=== PATIENT | female | born 1980 | race Caucasian/White ===

== ENCOUNTER → 2017-12-13 | Outpatient (CLI) | payer OTHER ==
[~2017-12-13] MED LIST: ALBU8.5H2 IH; CALC500T7 PO; CETI1TAB61 PO; HYDR1TAB PO; Ibuprofen PO; OXYC1TAB87 PO; PREN-52 PO; RANI150C11 PO
--- NOTE | 2017-12-13 09:12 | Diagnostic Imaging Report ---
Clinical indication: Patient with right upper quadrant pain. Exam: Ultrasound of the right upper quadrant. Comparison: MRCP dated 01/07/2016. Findings: The liver has normal echogenicity and echotexture. Liver surface is smooth. Liver measures 17.5 cm in craniocaudal dimension. There is no gross liver mass. The gallbladder is surgically resected. There is no intrahepatic ductal dilation. Common bile duct is obscured and unable to be evaluated. The pancreas is obscured by overlying bowel gas. There is no abdominal ascites. Right kidney has normal echogenicity, cortical thickness and size and measures 11.3 cm in craniocaudal dimension. There is no hydronephrosis. Limited visualization of the IVC is unremarkable. Impression: 1: There is no acute abnormality on this right upper quadrant ultrasound as visualized. 2: Mild hepatomegaly. Otherwise, liver is unremarkable. 3: The pancreas and common bile duct is obscured by overlying bowel gas. If there is concern for pancreatic abnormality such as pancreatitis, serology tests would better evaluate. 4: The gallbladder is surgically resected.0 Dictated by: Dictated on workstation # [id number]
== END ==
LOC: RAD 06:36
PROVIDERS: ATTEND Family Medicine
DX: R16.0 Hepatomegaly, not elsewhere classified (principal); R10.11 Right upper quadrant pain; Z90.49 Acquired absence of other specified parts of digestive tract
CPT/HCPCS: 76705

== ENCOUNTER 2018-01-02 14:32 | Emergency (ER) | payer OTHER ==
[~2018-01-02] VITALS: Ht 170.2 cm; Wt 63.5 kg
--- OUTSIDE RECORDS SUMMARY | 2018-01-02 14:38 | XMS REPORT ---
Author Author BHUPINDER CASTANON [facility] Address [address] [place] [address] Care Team Providers Care Candy Cooker Helper Name Role Phone KING BHUPINDER Unavailable PROBLEMS Type Condition ICD9-CM Code [id number] Code Onset Dates Condition Status SNOMED Code Problem Elevated liver enzymes R74.8 Active 890570249 Problem Depression with anxiety F41.8 Active 626102717 Problem Chronic GERD K21.9 Active 982112688 ALLERGIES No Information ENCOUNTERS Encounter Location Date Diagnosis [facility] [id number] [place] [address] 57101- 1467 Oct, Depression with anxiety F41.8 [facility] [id number] [place] [address] 05016- 9156 Oct, Chronic GERD K21.9 [facility] [id number] [place] [address] 51470 -6616 Oct, Encounter for immunization Z23 and Foreign body in left foot, initial encounter S90.852A [facility] [address] [place] [address] 65803- 6334 Sep, Chronic GERD K21.9 ; Long-term use of high-risk medication Z79.899 and Depression with anxiety F41.8 [facility] [id number] [place] [address] 37313- 1558 Sep, Depression with anxiety F41.8 [facility] [id number] [place] [address] 41178- 1732 Aug, Depression with anxiety F41.8 [facility] [id number] [place] [address] 35128- 5161 Aug, [facility] [id number] [place] [address] 27519- 8379 Aug, Chronic GERD K21.9 and Nausea R11.0 [facility] [address] 64505- 6895 Jul, Depression with anxiety F41.8 [facility] [id number] [place] [address] 03117- 6972 Jul, [facility] [address] 22937- 7703 June, Depression with anxiety F41.8 [facility] [id number] [place] [address] 61140 -9798 June, Skin infection L08.9 [facility] [id number] [place] [address] 15045- 1143 June, [facility] [address] 65965- 8405 May, Depression with anxiety F41.8 [facility] [id number] [place] [address] 43752- 4560 Apr, Chronic GERD K21.9 ; Depression with anxiety F41.8 and Rash and nonspecific skin eruption R21 [facility] [id number] [place] [address] 41963- 9688 Apr, Depression with anxiety F41.8 [facility] [id number] [place] [address] 88113- 7766 Apr, Depression with anxiety F41.8 [facility] [id number] [place] [address] 42090 -9429 Apr, Cough R05 and Viral URI J06.9 [facility] [id number] [place] [address] 93380 -1699 Mar, Acute nasopharyngitis J00 [facility] [id number] [place] [address] 47343- 0084 Mar, Depression with anxiety F41.8 [facility] [address] [facility] [id number] [place] [address] Jan, Chronic GERD K21.9 ; Depression with anxiety F41.8 ; Elevated liver enzymes R74.8 and Rash and nonspecific skin eruption R21 [facility] [address] [facility] [id number] [place] [address] Dec, Pharyngitis due to other organism J02.8 IMMUNIZATIONS No Known Immunizations SOCIAL HISTORY Never Assessed REASON FOR VISIT Alprazolam 11/08 PLAN OF CARE VITAL SIGNS MEDICATIONS Medication Instructions Dosage Frequency Start Date End Date Duration Status Xanax 0.5 MG Orally Once a day prn 1 tablet Active RESULTS No Results PROCEDURES No Known procedures INSTRUCTIONS MEDICATIONS ADMINISTERED No Known Medications MEDICAL (GENERAL) HISTORY Type Description Date Medical History gastroesophageal reflux disease (GERD) Medical History Anxiety Surgical History hernia repair May 2016 Surgical History cholecystectomy 2012 Surgical History section x3 Surgical History Gastric emptying test EGD, ECPG 2017
--- OUTSIDE RECORDS SUMMARY | 2018-01-02 14:38 | XMS REPORT ---
Author Author BHUPINDER CASTANON [facility] Address [address] [place] [address] Care Team Providers Care Protective Officer Name Role Phone MARYSE CASTANONTA Unavailable PROBLEMS Type Condition ICD9-CM Code XIZ40-FP Code Onset Dates Condition Status SNOMED Code Problem Elevated liver enzymes R74.8 Active 338670744 Problem Depression with anxiety F41.8 Active 134483098 Problem Chronic GERD K21.9 Active 660232864 ALLERGIES Substance Reaction Event Type Date Status Morphine Sulfate Unknown Drug Allergy Aug, Active Amoxicillin Unknown Drug Allergy Aug, Active ENCOUNTERS Encounter Location Date Diagnosis [place] [id number] [place] [address] 77420- 8190 Sep, Chronic GERD K21.9 ; Long-term use of high-risk medication Z79.899 and Depression with anxiety F41.8 [place] [id number] [place] [address] 18998- 8032 Sep, Depression with anxiety F41.8 [place] [id number] [place] [address] 30173- 3204 Aug, Depression with anxiety F41.8 [place] [id number] [place] [address] 80316- 9178 Aug, [place] [id number] [place] [address] 66689- 5578 Aug, Chronic GERD K21.9 and Nausea R11.0 [place] [id number] [place] [address] 14172- 1569 Jul, Depression with anxiety F41.8 [place] [id number] [place] [address] 99014- 0587 Jul, [facility] [address] [place] [address] 83109- 0084 June, Depression with anxiety F41.8 [facility] [place] [id number] [place] [address] 61043 -7400 June, Skin infection L08.9 [place] [id number] [place] [address] 75226- 5697 June, [place] [id number] [place] [address] 98953- 4447 May, Depression with anxiety F41.8 [place] [address] 59425- 1369 Apr, Chronic GERD K21.9 ; Depression with anxiety F41.8 and Rash and nonspecific skin eruption R21 [place] [id number] [place] [address] 35520- 5238 Apr, Depression with anxiety F41.8 [place] [id number] [place] [address] 94242- 0791 Apr, Depression with anxiety F41.8 [facility] [place] [id number] [place] [address] 20831 -0461 Apr, Cough R05 and Viral URI J06.9 [facility] [place] [id number] [place] [address] 72449 -7825 Mar, Acute nasopharyngitis J00 [place] [id number] [place] [address] 62161- 7118 Mar, Depression with anxiety F41.8 [place] [id number] [place] [address] 05772- 5557 Jan, Chronic GERD K21.9 ; Depression with anxiety F41.8 ; Elevated liver enzymes R74.8 and Rash and nonspecific skin eruption R21 [facility] [place] [id number] [place] [address] 65827 -9065 Dec, Pharyngitis due to other organism J02.8 IMMUNIZATIONS No Known Immunizations SOCIAL HISTORY Never Assessed REASON FOR VISIT Increased acid, causing nausea, medication isnt working well. PHAM Gibbons PLAN OF CARE Activity Details Follow Up 2 - 3 Days if not better Reason:gerd VITAL SIGNS Height 67 in 2017-09-03 Weight 139.2 lbs 2017-09-03 Temperature 98.7 degrees Fahrenheit 2017-09-03 Heart Rate 89 bpm 2017-09-03 Respiratory Rate 20 2017-09-03 BMI 21.80 kg/m2 2017-09-03 Blood pressure systolic 130 mmHg 2017-09-03 Blood pressure diastolic 72 mmHg 2017-09-03 MEDICATIONS Medication Instructions Dosage Frequency Start Date End Date Duration Status Loratadine 10 mg Orally Once a day 1 tablet 24h Apr, 30 day(s) Active Lexapro 20 mg Orally Once a day 0.5 tablet 24h 30 days Active Protonix 40 mg Orally Once a day 1 tablet 24h 30 days Active Carafate 1 GM/10ML Orally Twice a day 10 ml on an empty stomach 12h AugAug, 10 days Active ProAir HFA Active Promethazine HCl 25 MG Orally every 12 hrs prn 1 tablet as needed Active Xanax 0.5 MG Orally Once a day prn 1 tablet 28 days Active Triamcinolone Acetonide 0.1 % Externally Twice a day 1 application to affected area 12h Apr, Active Ranitidine HCl 150 MG Orally Once a day 1 tablet at bedtime 24h 30 Active RESULTS No Results PROCEDURES No Known procedures INSTRUCTIONS MEDICATIONS ADMINISTERED No Known Medications MEDICAL (GENERAL) HISTORY Type Description Date Medical History gastroesophageal reflux disease (GERD) Medical History Anxiety Surgical History hernia repair May 2016 Surgical History cholecystectomy 2012 Surgical History section x3 Surgical History Gastric emptying test EGD, ECPG 2016
--- OUTSIDE RECORDS SUMMARY | 2018-01-02 14:38 | XMS REPORT ---
Author Author BHUPINDER CASTANON [facility] Address [address] [place] [address] Care Team Providers Care Paper Final Inspector Name Role Phone MARYSE CASTANONTA Unavailable PROBLEMS Type Condition ICD9-CM Code [id number] Code Onset Dates Condition Status SNOMED Code Problem Elevated liver enzymes R74.8 Active 096738173 Problem Depression with anxiety F41.8 Active 725178712 Problem Chronic GERD K21.9 Active 275651774 ALLERGIES No Information ENCOUNTERS Encounter Location Date Diagnosis [place] [id number] [place] [address] 90169- 2175 Sep, Chronic GERD K21.9 ; Long-term use of high-risk medication Z79.899 and Depression with anxiety F41.8 [place] [id number] [place] [address] 65640- 2084 Sep, Depression with anxiety F41.8 [place] [id number] [place] [address] 18296- 4897 Aug, Depression with anxiety F41.8 [place] [id number] [place] [address] 44764- 0697 Aug, [facility] [id number] [place] [address] 72932- 2445 Aug, Chronic GERD K21.9 and Nausea R11.0 [place] [id number] [place] [address] 62459- 2385 Jul, Depression with anxiety F41.8 [place] [id number] [place] [address] 62662- 8275 Jul, [place] [id number] [place] [address] 17479- 5975 June, Depression with anxiety F41.8 [facility] [id number] [place] [address] 15115 -8749 June, Skin infection L08.9 [place] [id number] [place] [address] 95523- 4915 June, [place] [id number] [place] [address] 22514- 4885 May, Depression with anxiety F41.8 [place] [id number] [place] [address] 88737- 0900 Apr, Chronic GERD K21.9 ; Depression with anxiety F41.8 and Rash and nonspecific skin eruption R21 [place] [id number] [place] [address] 21220- 3852 Apr, Depression with anxiety F41.8 [place] [id number] [place] [address] 57926- 0862 Apr, Depression with anxiety F41.8 [facility] [place] [id number] [place] [address] 48285 -2768 Apr, Cough R05 and Viral URI J06.9 [facility] [place] [id number] [place] [address] 31420 -9995 Mar, Acute nasopharyngitis J00 [place] [id number] [place] [address] 41744- 4685 Mar, Depression with anxiety F41.8 [place] [id number] [place] [address] 45392- 9565 Jan, Chronic GERD K21.9 ; Depression with anxiety F41.8 ; Elevated liver enzymes R74.8 and Rash and nonspecific skin eruption R21 [facility] [address] [place] [address] 22079 -6851 Dec, Pharyngitis due to other organism J02.8 IMMUNIZATIONS No Known Immunizations SOCIAL HISTORY Never Assessed REASON FOR VISIT referral PLAN OF CARE VITAL SIGNS MEDICATIONS Medication Instructions Dosage Frequency Start Date End Date Duration Status Ranitidine HCl 150 MG Orally Once a day 2 tablet at bedtime 24h 60 days Active RESULTS No Results PROCEDURES No Known procedures INSTRUCTIONS MEDICATIONS ADMINISTERED No Known Medications MEDICAL (GENERAL) HISTORY Type Description Date Medical History gastroesophageal reflux disease (GERD) Medical History Anxiety Surgical History hernia repair May 2016 Surgical History cholecystectomy 2012 Surgical History section x3 Surgical History Gastric emptying test EGD, EC 2016
--- OUTSIDE RECORDS SUMMARY | 2018-01-02 14:38 | XMS REPORT ---
Author Author PARADISE BAKER Organization [facility] Address [address] [place] [address] Care Team Providers Care Frame Maker Name Role Phone PARADISE BAKER Unavailable PROBLEMS Type Condition ICD9-CM Code [id number] Code Onset Dates Condition Status SNOMED Code Problem Elevated liver enzymes R74.8 Active 061553858 Problem Depression with anxiety F41.8 Active 227224444 Problem Chronic GERD K21.9 Active 663115371 ALLERGIES No Information ENCOUNTERS Encounter Location Date Diagnosis [place] [address] 65363- 7970 Oct, Depression with anxiety F41.8 [facility] [id number] [place] [address] 59076- 3833 Oct, Chronic GERD K21.9 [facility] [address] 85980 -6132 Oct, Encounter for immunization Z23 and Foreign body in left foot, initial encounter S90.852A [place] [id number] [place] [address] 08590- 3817 Sep, Chronic GERD K21.9 ; Long-term use of high-risk medication Z79.899 and Depression with anxiety F41.8 [facility] [id number] [place] [address] 04270- 9064 Sep, Depression with anxiety F41.8 [place] [id number] [place] [address] 42755- 7253 Aug, Depression with anxiety F41.8 [facility] [id number] [place] [address] 13506- 3642 Aug, [facility] [id number] [place] [address] 39595- 9001 Aug, Chronic GERD K21.9 and Nausea R11.0 [place] [id number] [place] [address] 61416- 5816 Jul, Depression with anxiety F41.8 [facility] [id number] [place] [address] 59974- 0828 Jul, [facility] [address] 06006- 6594 June, Depression with anxiety F41.8 [facility] [address] 67568 -3847 June, Skin infection L08.9 [place] [id number] [place] [address] 41707- 7445 June, [facility] [address] 19183- 9252 May, Depression with anxiety F41.8 [place] [id number] [place] [address] 75903- 5775 Apr, Chronic GERD K21.9 ; Depression with anxiety F41.8 and Rash and nonspecific skin eruption R21 [place] [id number] [place] [address] 64276- 7113 Apr, Depression with anxiety F41.8 [facility] [id number] [place] [address] 03511- 6730 Apr, Depression with anxiety F41.8 [facility] [id number] [place] [address] 89243 -7610 Apr, Cough R05 and Viral URI J06.9 [facility] [id number] [place] [address] 30934 -4817 Mar, Acute nasopharyngitis J00 [facility] [id number] [place] [address] 12166- 5742 Mar, Depression with anxiety F41.8 [facility] [address] [facility] [id number] [place] [address]- 7644 Jan, Chronic GERD K21.9 ; Depression with anxiety F41.8 ; Elevated liver enzymes R74.8 and Rash and nonspecific skin eruption R21 [facility] [address] [facility] [id number] [place] [address] Dec, Pharyngitis due to other organism J02.8 IMMUNIZATIONS No Known Immunizations SOCIAL HISTORY Never Assessed REASON FOR VISIT Controlled Med Refill PLAN OF CARE VITAL SIGNS MEDICATIONS Medication Instructions Dosage Frequency Start Date End Date Duration Status Xanax 0.5 MG Orally Once a day prn 1 tablet 28 days Active RESULTS No Results PROCEDURES No Known procedures INSTRUCTIONS MEDICATIONS ADMINISTERED No Known Medications MEDICAL (GENERAL) HISTORY Type Description Date Medical History gastroesophageal reflux disease (GERD) Medical History Anxiety Surgical History hernia repair May 2016 Surgical History cholecystectomy 2012 Surgical History section x3 Surgical History Gastric emptying test EGD, ECPG 2016
--- OUTSIDE RECORDS SUMMARY | 2018-01-02 14:38 | XMS REPORT ---
Author Author PARADISE BAKER [facility] Address [address] [place] [address] Care Team Providers Care Lane Marker Installer Name Role Phone PARADISE BAKER Unavailable PROBLEMS Type Condition ICD9-CM Code JHO68-IP Code Onset Dates Condition Status SNOMED Code Problem Elevated liver enzymes R74.8 Active 328826066 Problem Depression with anxiety F41.8 Active 692742298 Problem Chronic GERD K21.9 Active 663339507 ALLERGIES No Information ENCOUNTERS Encounter Location Date Diagnosis [facility] [id number] [place] [address] 89971 -2351 Oct, Encounter for immunization Z23 and Foreign body in left foot, initial encounter S90.852A [facility] [id number] [place] [address] 11502- 1860 Sep, Chronic GERD K21.9 ; Long-term use of high-risk medication Z79.899 and Depression with anxiety F41.8 [facility] [id number] [place] [address] 18979- 7923 Sep, Depression with anxiety F41.8 [facility] [id number] [place] [address] 01366- 0468 Aug, Depression with anxiety F41.8 [facility] [id number] [place] [address] 90561- 2887 Aug, [facility] [id number] [place] [address] 50989- 5124 Aug, Chronic GERD K21.9 and Nausea R11.0 [facility] [id number] [place] [address] 60785- 7059 Jul, Depression with anxiety F41.8 [facility] [id number] [place] [address] 33383- 1634 Jul, [facility] [address] 95482- 2565 June, Depression with anxiety F41.8 [facility] [id number] [place] [address] 55366 -4856 June, Skin infection L08.9 [facility] [id number] [place] [address] 16214- 8790 June, [facility] [id number] [place] [address] 71548- 4112 May, Depression with anxiety F41.8 [place] [id number] [place] [address] 65835- 3601 Apr, Chronic GERD K21.9 ; Depression with anxiety F41.8 and Rash and nonspecific skin eruption R21 [place] [id number] [place] [address] 31068- 0722 Apr, Depression with anxiety F41.8 [place] [address] [id number] [place] [address] 67121- 2566 Apr, Depression with anxiety F41.8 [facility] [id number] [place] [address] 56164 -3729 Apr, Cough R05 and Viral URI J06.9 [facility] [id number] [place] [address] 00461 -8341 Mar, Acute nasopharyngitis J00 [facility] [id number] [place] [address] 00279- 9167 Mar, Depression with anxiety F41.8 [place] [id number] [place] [address] 57845- 8314 Jan, Chronic GERD K21.9 ; Depression with anxiety F41.8 ; Elevated liver enzymes R74.8 and Rash and nonspecific skin eruption R21 [facility] [address] [facility] [id number] [place] [address] 15 Dec, 2016 Pharyngitis due to other organism J02.8 IMMUNIZATIONS [...]
--- OUTSIDE RECORDS SUMMARY | 2018-01-02 14:38 | XMS REPORT ---
Author Author PARADISE BAKER [facility] Address [address] [place] [address] Care Team Providers Care Bronzer Name Role Phone PARADISE BAKER Unavailable PROBLEMS Type Condition ICD9-CM Code [id number] Code Onset Dates Condition Status SNOMED Code Problem Elevated liver enzymes R74.8 Active 737193203 Problem Depression with anxiety F41.8 Active 503080143 Problem Chronic GERD K21.9 Active 306349122 ALLERGIES No Information ENCOUNTERS Encounter Location Date Diagnosis [facility] [id number] [place] [address] 16618- 4351 Sep, [facility] [id number] [place] [address] 80435- 7553 Sep, Depression with anxiety F41.8 [facility] [id number] [place] [address] 76956- 2159 Aug, Depression with anxiety F41.8 [facility] [id number] [place] [address] 64230- 3493 Aug, [facility] [id number] [place] [address] 82854- 4853 Aug, Chronic GERD K21.9 and Nausea R11.0 [facility] [id number] [place] [address] 18133- 3256 Jul, Depression with anxiety F41.8 [facility] [id number] [place] [address] 00646- 5618 Jul, [facility] [id number] [place] [address] 10075- 2526 June, Depression with anxiety F41.8 [facility] [id number] [place] [address] 87871 -5723 June, Skin infection L08.9 [place] [address] 89077- 7875 June, [place] [address] 54076- 4806 May, Depression with anxiety F41.8 [place] [address] 68359- 3628 Apr, Chronic GERD K21.9 ; Depression with anxiety F41.8 and Rash and nonspecific skin eruption R21 [place] [address] 39902- 3815 Apr, Depression with anxiety F41.8 [place] [address] 27226- 7143 Apr, Depression with anxiety F41.8 [facility] [place] [address] 15170 -7481 Apr, Cough R05 and Viral URI J06.9 [facility] [place] [address] 67809 -7600 Mar, Acute nasopharyngitis J00 [place] [address] 06761- 5187 Mar, Depression with anxiety F41.8 [place] [id number] [place] [address] 18805- 3515 Jan, Chronic GERD K21.9 ; Depression with anxiety F41.8 ; Elevated liver enzymes R74.8 and Rash and nonspecific skin eruption R21 [facility] [address] [address]75 -7787 Dec, Pharyngitis due to other organism J02.8 [...] x3 Surgical History Gastric emptying test EGD, [facility] 2017
--- OUTSIDE RECORDS SUMMARY | 2018-01-02 14:38 | XMS REPORT ---
Author Author BHUPINDER CASTANON [facility] Address [address] [place] [address] Care Team Providers Care Crown And Bridge Technician Name Role Phone KING BHUPINDER Unavailable PROBLEMS Type Condition ICD9-CM Code [id number] Code Onset Dates Condition Status SNOMED Code Problem Elevated liver enzymes R74.8 Active 917426126 Problem Depression with anxiety F41.8 Active 054863671 Problem Chronic GERD K21.9 Active 288935659 ALLERGIES No Information ENCOUNTERS Encounter Location Date Diagnosis [facility] [id number] [place] [address] 03177- 8590 Oct, Depression with anxiety F41.8 [facility] [id number] [place] [address] 53063- 0727 Oct, Chronic GERD K21.9 [facility] [id number] [place] [address] 26613 -8398 Oct, Encounter for immunization Z23 and Foreign body in left foot, initial encounter S90.852A [facility] [id number] [place] [address] 57412- 3348 Sep, Chronic GERD K21.9 ; Long-term use of high-risk medication Z79.899 and Depression with anxiety F41.8 [facility] [id number] [place] [address] 83786- 8461 Sep, Depression with anxiety F41.8 [facility] [id number] [place] [address] 96089- 0990 Aug, Depression with anxiety F41.8 [facility] [id number] [place] [address] 11868- 3136 Aug, [facility] [address] [place] [id number] [place] [address] 34472- 6344 Aug, Chronic GERD K21.9 and Nausea R11.0 [facility] [address] 59744- 0834 Jul, Depression with anxiety F41.8 [facility] [id number] [place] [address] 28692- 6249 Jul, [facility] [address] 26182- 5173 June, Depression with anxiety F41.8 [facility] [id number] [place] [address] 92123 -8681 June, Skin infection L08.9 [facility] [id number] [place] [address] 09890- 7401 June, [facility] [address] 32619- 1712 May, Depression with anxiety F41.8 [facility] [id number] [place] [address] 85059- 8617 Apr, Chronic GERD K21.9 ; Depression with anxiety F41.8 and Rash and nonspecific skin eruption R21 [facility] [id number] [place] [address] 42860- 1650 Apr, Depression with anxiety F41.8 [facility] [id number] [place] [address] 34867- 0723 Apr, Depression with anxiety F41.8 [facility] [id number] [place] [address] 88527 -2903 Apr, Cough R05 and Viral URI J06.9 [facility] [id number] [place] [address] 42269 -6110 Mar, Acute nasopharyngitis J00 [facility] [id number] [place] [address] 42996- 1868 Mar, Depression with anxiety F41.8 [facility] [address] [facility] [id number] [place] [address]- 4[address] Jan, Chronic GERD K21.9 ; Depression with anxiety F41.8 ; Elevated liver enzymes R74.8 and Rash and nonspecific skin eruption R21 [facility]ALK IN [facility] [address] [facility] [id number] [place] [address] Dec, Pharyngitis due to other organism J02.8 IMMUNIZATIONS No Known Immunizations SOCIAL HISTORY Never Assessed REASON FOR VISIT Refill request PLAN OF CARE VITAL SIGNS MEDICATIONS Medication Instructions Dosage Frequency Start Date End Date Duration Status ProAir HFA 108 (90 Base) MCG/ACT Inhalation every 6 hrs 2 puffs as needed 6h Active Protonix 40 mg Orally 2 times a day 1 tablet 12h Active Ranitidine HCl 150 MG Orally Once a day 1 tablet at bedtime 24h Active RESULTS No Results PROCEDURES No Known procedures INSTRUCTIONS MEDICATIONS ADMINISTERED No Known Medications MEDICAL (GENERAL) HISTORY Type Description Date Medical History gastroesophageal reflux disease (GERD) Medical History Anxiety Surgical History hernia repair May 2016 Surgical History cholecystectomy 2012 Surgical History section x3 Surgical History Gastric emptying test EGD, [facility] 2016
--- OUTSIDE RECORDS SUMMARY | 2018-01-02 14:38 | XMS REPORT ---
Author Author SAMIA HANKS [facility] Address [address] [place] [address] Care Team Providers Care Contracts Administrator Name Role Phone SAMIA HANKS Unavailable PROBLEMS Type Condition ICD9-CM Code CXA96-VT Code Onset Dates Condition Status SNOMED Code Problem Elevated liver enzymes R74.8 Active 346658057 Problem Depression with anxiety F41.8 Active 076544519 Problem Chronic GERD K21.9 Active 825736006 ALLERGIES Substance Reaction Event Type Date Status Morphine Sulfate Unknown Drug Allergy Oct, Active Amoxicillin Unknown Drug Allergy Oct, Active ENCOUNTERS Encounter Location Date Diagnosis [place] [address] 01524- 9800 Oct, Depression with anxiety F41.8 [facility] [id number] [place] [address] 96451- 2864 Oct, Chronic GERD K21.9 [facility] [id number] [place] [address] 56621 -1413 Oct, Encounter for immunization Z23 and Foreign body in left foot, initial encounter S90.852A [place] [address] [place] [address] [id number] [place] [address] 99128- 6134 Sep, Chronic GERD K21.9 ; Long-term use of high-risk medication Z79.899 and Depression with anxiety F41.8 [place] [id number] [place] [address] 09707- 3035 Sep, Depression with anxiety F41.8 [place] [id number] [place] [address] 78975- 0310 Aug, Depression with anxiety F41.8 [place] [address] [address] [id number] [place] [address] 17097- 1804 Aug, [facility] [id number] [place] [address] 99094- 3901 Aug, Chronic GERD K21.9 and Nausea R11.0 [facility] [id number] [place] [address] 55543- 4511 Jul, Depression with anxiety F41.8 [place] [id number] [place] [address] 94144- 5012 Jul, [facility] [id number] [place] [address] 61837- 2270 June, Depression with anxiety F41.8 [facility] [id number] [place] [address] 38606 -4971 June, Skin infection L08.9 [place] [id number] [place] [address] 23683- 0795 June, [facility] [id number] [place] [address] 37201- 8398 May, Depression with anxiety F41.8 [place] [id number] [place] [address] 24703- 3997 Apr, Chronic GERD K21.9 ; Depression with anxiety F41.8 and Rash and nonspecific skin eruption R21 [place] [id number] [place] [address] 67609- 5608 Apr, Depression with anxiety F41.8 [place] [id number] [place] [address] 45664- 8981 Apr, Depression with anxiety F41.8 [facility] [id number] [place] [address] 07974 -3893 Apr, Cough R05 and Viral URI J06.9 [facility] [id number] [place] [address] 88145 -0221 Mar, Acute nasopharyngitis J00 [place] [address] [facility] [id number] [place] [address]- [address] Mar, Depression with anxiety F41.8 [facility] [address] [facility] [id number] [address] Jan, Chronic GERD K21.9 ; Depression with anxiety F41.8 ; Elevated liver enzymes R74.8 and Rash and nonspecific skin eruption R21 [facility] [address] [facility] [id number], [place] [address] Dec, Pharyngitis due to other organism J02.8 IMMUNIZATIONS Vaccine Route Administration Date Status TDAP (BOOSTRIX) IM Intramuscular Nov 02, 2017 Administered SOCIAL HISTORY Never Assessed REASON FOR VISIT glass in foot last night JStrasserRN PLAN OF CARE Activity Details Follow Up prn Reason:if pain continues VITAL SIGNS Height 67 in 2017-11-02 Weight 141.2 lbs 2017-11-02 Temperature 99.5 degrees Fahrenheit 2017-11-02 Heart Rate 92 bpm 2017-11-02 Respiratory Rate 20 2017-11-02 BMI 22.11 kg/m2 2017-11-02 Blood pressure systolic 112 mmHg 2017-11-02 Blood pressure diastolic 70 mmHg 2017-11-02 MEDICATIONS Medication Instructions Dosage Frequency Start Date End Date Duration Status Metoclopramide HCl 10 MG Orally 4 times a day 1 tablet 6h Active Ranitidine HCl 150 MG Orally Once a day 1 tablet at bedtime 24h Active Protonix 40 mg Orally Once a day 1 tablet 24h Active Xanax 0.5 MG Orally Once a day prn 1 tablet Active Triamcinolone Acetonide 0.1 % Externally Twice a day 1 application to affected area 12h 21 Apr, 2017 Active ProAir HFA Active Loratadine 10 mg Orally Once a day 1 tablet 24h 16 Apr, 2018 30 day(s) Active Promethazine HCl 25 MG Orally every 12 hrs prn 1 tablet as needed Active Lexapro 20 mg Orally Once a day 1 tablet 24h 30 days Active RESULTS No Results PROCEDURES Procedure Date Ordered Result Body Site TDAP (BOOSTRIX) Nov 02, 2017 SINGLE IMMUNIZATION ADMIN Nov 02, 2017 INSTRUCTIONS MEDICATIONS ADMINISTERED No Known Medications MEDICAL (GENERAL) HISTORY Type Description Date Medical History gastroesophageal reflux disease (GERD) Medical History Anxiety Surgical History hernia repair May 2016 Surgical History cholecystectomy 2012 Surgical History section x3 Surgical History Gastric emptying test EGD, [facility] 2017
--- OUTSIDE RECORDS SUMMARY | 2018-01-02 14:38 | XMS REPORT ---
Author Author BHUPINDER CASTANON [facility] Address [address] [place] [address] Care Team Providers Care Clock Assembler Name Role Phone MARYSE CASTANONTA Unavailable PROBLEMS Type Condition ICD9-CM Code [id number] Code Onset Dates Condition Status SNOMED Code Problem Elevated liver enzymes R74.8 Active 767915741 Problem Depression with anxiety F41.8 Active 511772662 Problem Chronic GERD K21.9 Active 792736951 ALLERGIES Substance Reaction Event Type Date Status Morphine Sulfate Unknown Drug Allergy Sep, Active Amoxicillin Unknown Drug Allergy Sep, Active ENCOUNTERS Encounter Location Date Diagnosis [facility] [id number] [place] [address] 88975- 0443 Oct, Depression with anxiety F41.8 [facility] [id number] [place] [address] 76224- 7817 Oct, Chronic GERD K21.9 [facility] [id number] [place] [address] 12083 -0752 Oct, Encounter for immunization Z23 and Foreign body in left foot, initial encounter S90.852A [facility] [id number] [place] [address] 31030- 1133 Sep, Chronic GERD K21.9 ; Long-term use of high-risk medication Z79.899 and Depression with anxiety F41.8 [facility] [id number] [place] [address] 84506- 6486 Sep, Depression with anxiety F41.8 [facility] [id number] [place] [address] 84313- 8910 Aug, Depression with anxiety F41.8 [facility] [id number] [place] [address] 60511- 7061 Aug, [facility] [id number] [place] [address] 66482- 6896 Aug, Chronic GERD K21.9 and Nausea R11.0 [facility] [id number] [place] [address] 18431- 5099 Jul, Depression with anxiety F41.8 [place] [id number] [place] [address] 34285- 5014 Jul, [place] [id number] [place] [address] 01275- 2380 June, Depression with anxiety F41.8 [facility] [id number] [place] [address] 58907 -9687 June, Skin infection L08.9 [place] [id number] [place] [address] 87803- 2582 June, [facility] [id number] [place] [address] 39336- 0475 May, Depression with anxiety F41.8 [place] [id number] [place] [address] 88126- 4457 Apr, Chronic GERD K21.9 ; Depression with anxiety F41.8 and Rash and nonspecific skin eruption R21 [place] [id number] [place] [address] 41510- 3229 Apr, Depression with anxiety F41.8 [facility] [id number] [place] [address] 47542- 0907 Apr, Depression with anxiety F41.8 [facility] [id number] [place] [address] 22172 -4088 Apr, Cough R05 and Viral URI J06.9 [facility] [id number] [place] [address] 17494 -8957 Mar, Acute nasopharyngitis J00 [place] [address] [facility] [id number] [place] [address]- 0096 Mar, Depression with anxiety F41.8 [facility] [address] [facility] [id number], [place] [address] Jan, Chronic GERD K21.9 ; Depression with anxiety F41.8 ; Elevated liver enzymes R74.8 and Rash and nonspecific skin eruption R21 [facility] [address] [facility] [id number] [address] Dec, Pharyngitis due to other organism J02.8 IMMUNIZATIONS No Known Immunizations SOCIAL HISTORY Never Assessed REASON FOR VISIT New provider visit. JACQUIE Hope PLAN OF CARE Activity Details Follow Up 3 months or as indicated by lab Reason:med review VITAL SIGNS Height 67 in 2017-10-28 Weight 142.5 lbs 2017-10-28 Temperature 97.9 degrees Fahrenheit 2017-10-28 Heart Rate 88 bpm 2017-10-28 Respiratory Rate 18 2017-10-28 BMI 22.32 kg/m2 2017-10-28 Blood pressure systolic 112 mmHg 2017-10-28 Blood pressure diastolic 66 mmHg 2017-10-28 MEDICATIONS Medication Instructions Dosage Frequency Start Date End Date Duration Status Promethazine HCl 25 MG Orally every 12 hrs prn 1 tablet as needed Active ProAir HFA Active Lexapro 20 mg Orally Once a day 1 tablet 24h 30 days Active Loratadine 10 mg Orally Once a day 1 tablet 24h 16 Apr, 2018 30 day(s) Active Ranitidine HCl 150 MG Orally Once a day 1 tablet at bedtime 24h Active Triamcinolone Acetonide 0.1 % Externally Twice a day 1 application to affected area 12h Apr, Active Xanax 0.5 MG Orally Once a day prn 1 tablet Active Protonix 40 mg Orally Once a day 1 tablet 24h Active Metoclopramide HCl 10 MG Orally 4 times a day 1 tablet 6h Active RESULTS No Results PROCEDURES Procedure Date Ordered Result Body Site DRUG TEST PRSMV CHEM ANLYZR Oct 28, 2017 INSTRUCTIONS MEDICATIONS ADMINISTERED No Known Medications MEDICAL (GENERAL) HISTORY Type Description Date Medical History gastroesophageal reflux disease (GERD) Medical History Anxiety Surgical History hernia repair May 2016 Surgical History cholecystectomy 2012 Surgical History section x3 Surgical History Gastric emptying test EGD, [facility] 2016
--- OUTSIDE RECORDS SUMMARY | 2018-01-02 14:39 | XMS REPORT ---
Author Author PARADISE BAKER [facility] Address [address] [place] [address] Care Team Providers Care Waist Cutter Name Role Phone PARADISE BAKER Unavailable PROBLEMS Type Condition ICD9-CM Code [id number] Code Onset Dates Condition Status SNOMED Code Problem Elevated liver enzymes R74.8 Active 578416394 Problem Depression with anxiety F41.8 Active 213748871 Problem Chronic GERD K21.9 Active 070953564 ALLERGIES No Information ENCOUNTERS Encounter Location Date Diagnosis [facility] [address] [id number] [place] [address] 79329- 8452 Sep, [facility] [address] [id number] [place] [address] 86228- 3613 Sep, Depression with anxiety F41.8 [facility] [address] [id number] [place] [address] 92193- 4255 Aug, Depression with anxiety F41.8 [facility] [address] [place] [address] [id number] [place] [address] 16325- 2359 Aug, [facility] [address] [place] [id number] [place] [address] 93860- 6214 Aug, Chronic GERD K21.9 and Nausea R11.0 [facility] [address] [place] [id number] [place] [address] 35421- 5540 Jul, Depression with anxiety F41.8 [facility] [address] [place] [address] [id number] [place] [address] 45844- 3840 Jul, [facility] [address] [place] [id number] [place] [address] 49008- 3053 June, Depression with anxiety F41.8 [facility] [address] [place] [id number] [place] [address] 02936 -6630 June, Skin infection L08.9 [place] [address] 09200- 0161 June, [place] [address] 85220- 8669 May, Depression with anxiety F41.8 [place] [address] 89901- 9730 Apr, Chronic GERD K21.9 ; Depression with anxiety F41.8 and Rash and nonspecific skin eruption R21 [place] [address] 91787- 6233 Apr, Depression with anxiety F41.8 [place] [address] 38986- 9361 Apr, Depression with anxiety F41.8 [facility] WALK IN [place] [address] 72719 -7651 Apr, Cough R05 and Viral URI J06.9 [facility] WALK IN [address] 59[address] -0335 Mar, Acute nasopharyngitis J00 [address] [address]01- 5658 Mar, Depression with anxiety F41.8 [place] [address] [place] [id number] [place] [address] 07782- 6202 Jan, Chronic GERD K21.9 ; Depression with anxiety F41.8 ; Elevated liver enzymes R74.8 and Rash and nonspecific skin eruption R21 [facility] WALK IN [address] [address] Dec, Pharyngitis due to other organism J02.8 IMMUNIZATIONS No Known Immunizations SOCIAL HISTORY Never Assessed REASON FOR VISIT Eye Exam PLAN OF CARE VITAL SIGNS MEDICATIONS Unknown Medications RESULTS No Results PROCEDURES No Known procedures INSTRUCTIONS MEDICATIONS ADMINISTERED No Known Medications MEDICAL (GENERAL) HISTORY Type Description Date Medical History gastroesophageal reflux disease (GERD) Medical History Anxiety Surgical History hernia repair May 2016 Surgical History cholecystectomy 2012 Surgical History section x3 Surgical History Gastric emptying test EGD, [facility] 2017
--- OUTSIDE RECORDS SUMMARY | 2018-01-02 14:39 | XMS REPORT ---
Author Author ROBERT GRIFFITH [facility] Address [address] [place] [address] Care Team Providers Care Pad Extraction Tender Name Role Phone ROBERT GRIFFITH Unavailable PROBLEMS Type Condition ICD9-CM Code [id number] Code Onset Dates Condition Status SNOMED Code Problem Elevated liver enzymes R74.8 Active 327937754 Problem Depression with anxiety F41.8 Active 367864962 Problem Chronic GERD K21.9 Active 816146203 ALLERGIES Substance Reaction Event Type Date Status Morphine Sulfate Unknown Drug Allergy June, Active Amoxicillin Unknown Drug Allergy June, Active ENCOUNTERS Encounter Location Date Diagnosis [place] [address] [id number] [place] [address] 75800- 3688 Sep, [facility] [id number] [place] [address] 81015- 0320 Aug, Depression with anxiety F41.8 [facility] [id number] [place] [address] 92095- 8215 Aug, [facility] [id number] [place] [address] 34946- 4248 Aug, Chronic GERD K21.9 and Nausea R11.0 [facility] [id number] [place] [address] 00341- 6225 Jul, Depression with anxiety F41.8 [facility] [address] 80439- 6755 Jul, [facility] [id number] [place] [address] 52819- 3962 June, Depression with anxiety F41.8 [facility] [id number] [place] [address] 11652 -1900 June, Skin infection L08.9 [facility] [id number] [place] [address] 52690- 1910 June, [place] [address] 64815- 9822 May, Depression with anxiety F41.8 [place] [address] 99694- 4001 Apr, Chronic GERD K21.9 ; Depression with anxiety F41.8 and Rash and nonspecific skin eruption R21 [place] [address] 79040- 3123 Apr, Depression with anxiety F41.8 [place] [address] 50531- 2775 Apr, Depression with anxiety F41.8 [facility] [place] [address] 65464 -3275 Apr, Cough R05 and Viral URI J06.9 [facility] IN [place] [id number] [place] [address] 53194 -4377 Mar, Acute nasopharyngitis J00 [place] [id number] [place] [address] 02929- 7203 Mar, Depression with anxiety F41.8 [place] [address] 33306- 2418 Jan, Chronic GERD K21.9 ; Depression with anxiety F41.8 ; Elevated liver enzymes R74.8 and Rash and nonspecific skin eruption R21 [facility] [place] [address] 70044 -1660 Dec, Pharyngitis due to other organism J02.8 IMMUNIZATIONS No Known Immunizations SOCIAL HISTORY Never Assessed REASON FOR VISIT hurt finger Pt c/o spot on knuckle of R pointer finger that may possibly be infected, states last week she brushed knuckle against a chair and she keeps bumping it JACQUIE Jenkins PLAN OF CARE Activity Details Follow Up prn Reason: VITAL SIGNS Height 67 in 2017-07-08 Weight 141.6 lbs 2017-07-08 Temperature 98.4 degrees Fahrenheit 2017-07-08 Heart Rate 76 bpm 2017-07-08 Respiratory Rate 18 2017-07-08 BMI 22.18 kg/m2 2017-07-08 Blood pressure systolic 126 mmHg 2017-07-08 Blood pressure diastolic 76 mmHg 2017-07-08 MEDICATIONS Medication Instructions Dosage Frequency Start Date End Date Duration Status Promethazine HCl 25 MG Orally every 12 hrs prn 1 tablet as needed Not-Taking Protonix 40 mg Orally Once a day 1 tablet 24h 30 days Active Ranitidine HCl 150 MG Orally Once a day 1 tablet at bedtime 24h 30 day(s) Active Loratadine 10 mg Orally Once a day 1 tablet 24h 16 Apr, 2018 30 day(s) Active ProAir HFA Active Triamcinolone Acetonide 0.1 % Externally Twice a day 1 application to affected area 12h Apr, Active Lexapro 20 mg Orally Once a day 0.5 tablet 24h 30 days Active Bactrim DS 800-160 MG Orally Twice a day 1 tablet 12h June, 10 days Active Xanax 0.5 MG Orally Once a [...]
--- OUTSIDE RECORDS SUMMARY | 2018-01-02 14:39 | XMS REPORT ---
Author Author PARADISE BAKER [facility] Address [address] [place] [address] Care Team Providers Care Cook Chill Technician Name Role Phone PARADISE BAKER Unavailable PROBLEMS Type Condition ICD9-CM Code [id number] Code Onset Dates Condition Status SNOMED Code Problem Elevated liver enzymes R74.8 Active 836302735 Problem Depression with anxiety F41.8 Active 171883377 Problem Chronic GERD K21.9 Active 144125934 ALLERGIES No Information ENCOUNTERS Encounter Location Date Diagnosis [facility] [id number] [place] [address] 02545- 6247 Aug, Depression with anxiety F41.8 [facility] [id number] [place] [address] 84082- 3321 Aug, [facility] [id number] [place] [address] 12413- 1494 Aug, Chronic GERD K21.9 and Nausea R11.0 [facility] [address] [place] [id number] [place] [address] 98191- 6488 Jul, Depression with anxiety F41.8 [facility] [id number] [place] [address] 51830- 0621 Jul, [facility] [id number] [place] [address] 59917- 3814 June, Depression with anxiety F41.8 [facility] [id number] [place] [address] 49685 -9818 June, Skin infection L08.9 [facility] [id number] [place] [address] 54191- 1369 June, [facility] [id number] [place] [address] 77043- 6806 May, Depression with anxiety F41.8 [place] [id number] [place] [address] 09348- 5994 Apr, Chronic GERD K21.9 ; Depression with anxiety F41.8 and Rash and nonspecific skin eruption R21 [place] [address] 85914- 6661 Apr, Depression with anxiety F41.8 [place] [address] 26750- 1429 Apr, Depression with anxiety F41.8 [facility] IN [place] [address] 51159 -3888 Apr, Cough R05 and Viral URI J06.9 [facility] IN [place] [address] 02459 -5573 Mar, Acute nasopharyngitis J00 [place] [address] [place] [address] [id number] [place] [address] 95121- 3797 Mar, Depression with anxiety F41.8 [place] [address] [id number] [place] [address] 45057- 4168 Jan, Chronic GERD K21.9 ; Depression with anxiety F41.8 ; Elevated liver enzymes R74.8 and Rash and nonspecific skin eruption R21 [facility] [place] [address] [place] [address] [id number] [place] [address] 19242 -0236 Dec, Pharyngitis due to other organism J02.8 [...]
--- OUTSIDE RECORDS SUMMARY | 2018-01-02 14:39 | XMS REPORT ---
Author Author PARADISE BAKER [facility] Address [address] [place] [address] Care Team Providers Care Golf Range Attendant Name Role Phone PARADISE BAKER Unavailable PROBLEMS Type Condition ICD9-CM Code PIH21-II Code Onset Dates Condition Status SNOMED Code Problem Elevated liver enzymes R74.8 Active 351247596 Problem Depression with anxiety F41.8 Active 351269802 Problem Chronic GERD K21.9 Active 910566069 ALLERGIES No Information ENCOUNTERS Encounter Location Date Diagnosis [place] [address] 97627- 4975 Jul, Depression with anxiety F41.8 [facility] [id number] [place] [address] 46303- 5714 Jul, [facility] [address] 39446- 4228 June, Depression with anxiety F41.8 [facility] [id number] [place] [address] 37784 -2195 June, Skin infection L08.9 [facility] [address] 49245- 9984 June, [facility] [id number] [place] [address] 50354- 7684 May, Depression with anxiety F41.8 [facility] [address] 64439- 0215 Apr, Chronic GERD K21.9 ; Depression with anxiety F41.8 and Rash and nonspecific skin eruption R21 [facility] [id number] [place] [address] 98867- 0739 Apr, Depression with anxiety F41.8 [facility] [address] [address] 2891 Apr, Depression with anxiety F41.8 [facility] [address] [place] [address] 53228 -3165 Apr, Cough R05 and Viral URI J06.9 [facility] [address] 13316 -2926 Mar, Acute nasopharyngitis J00 [facility] [address] [place] [id number] [place] [address] 94626- 8071 Mar, Depression with anxiety F41.8 [facility] [id number] [place] [address] 55284- 9484 Jan, Chronic GERD K21.9 ; Depression with anxiety F41.8 ; Elevated liver enzymes R74.8 and Rash and nonspecific skin eruption R21 [facility] [address] [place] [address] 44120 -2270 Dec, Pharyngitis due to other organism J02.8 [...]
--- OUTSIDE RECORDS SUMMARY | 2018-01-02 14:39 | XMS REPORT ---
Author Author PARADISE BAKER [facility] Address [address] [place] [address] Care Team Providers Care Green Belt Name Role Phone PARADISE BAKER Unavailable PROBLEMS Type Condition ICD9-CM Code RXR97-PK Code Onset Dates Condition Status SNOMED Code Problem Elevated liver enzymes R74.8 Active 873039236 Problem Depression with anxiety F41.8 Active 805344364 Problem Chronic GERD K21.9 Active 821143713 ALLERGIES No Information ENCOUNTERS Encounter Location Date Diagnosis [place] [address] [id number] [place] [address] 21200- 9060 Sep, [facility] [address] 42446- 1730 Aug, Depression with anxiety F41.8 [facility] [id number] [place] [address] 22073- 9660 Aug, [place] [id number] [place] [address] 80611- 7342 Aug, Chronic GERD K21.9 and Nausea R11.0 [facility] [address] [place] [address] [id number] [place] [address] 03608- 6634 Jul, Depression with anxiety F41.8 [facility] [id number] [place] [address] 90711- 0346 Jul, [facility] [address] [id number] [place] [address] 63222- 3861 June, Depression with anxiety F41.8 [facility] [id number] [place] [address] 61266 -2145 June, Skin infection L08.9 [facility] [address] [place] [address] [id number] [place] [address] 97030- 2048 June, [place] [address] 44415- 8695 May, Depression with anxiety F41.8 [place] [id number] [place] [address] 02789- 3187 Apr, Chronic GERD K21.9 ; Depression with anxiety F41.8 and Rash and nonspecific skin eruption R21 [place] [address] 90653- 7861 Apr, Depression with anxiety F41.8 [place] [address] 86484- 1833 Apr, Depression with anxiety F41.8 [facility] [address] 10101 -1733 Apr, Cough R05 and Viral URI J06.9 [facility] [place] [id number] [place] [address] 12170 -5761 Mar, Acute nasopharyngitis [address] 52646- 5645 Mar, Depression with anxiety F41.8 [place] [address] 97195- 5028 Jan, Chronic GERD K21.9 ; Depression with anxiety F41.8 ; Elevated liver enzymes R74.8 and Rash and nonspecific skin eruption R21 [facility] [place] [id number] [place] [address] 64265 -6477 Dec, Pharyngitis due to other organism J02.8 [...]
--- OUTSIDE RECORDS SUMMARY | 2018-01-02 14:39 | XMS REPORT ---
Author Author PARADISE BAKER [facility] Address [address] [place] [address] Care Team Providers Care Php Architect Name Role Phone PARADISE BAKER Unavailable PROBLEMS Type Condition ICD9-CM Code LIW09-IR Code Onset Dates Condition Status SNOMED Code Problem Elevated liver enzymes R74.8 Active 667516755 Problem Depression with anxiety F41.8 Active 627876626 Problem Chronic GERD K21.9 Active 791422274 ALLERGIES No Information ENCOUNTERS Encounter Location Date Diagnosis [facility] [id number] [place] [address] 20187- 3276 Aug, Depression with anxiety F41.8 [facility] [id number] [place] [address] 37472- 2844 Aug, [facility] [id number] [place] [address] 12908- 8690 Aug, Chronic GERD K21.9 and Nausea R11.0 [facility] [id number] [place] [address] 02128- 8152 Jul, Depression with anxiety F41.8 [facility] [id number] [place] [address] 70895- 4109 Jul, [facility] [id number] [place] [address] 85988- 0666 June, Depression with anxiety F41.8 [facility] [id number] [place] [address] 70539 -8667 June, Skin infection L08.9 [facility] [id number] [place] [address] 51116- 5633 June, [facility] [id number] [place] [address] 15140- 4445 May, Depression with anxiety F41.8 [place] [id number] [place] [address] 43444- 2100 Apr, Chronic GERD K21.9 ; Depression with anxiety F41.8 and Rash and nonspecific skin eruption R21 [place] [address] 40344- 2867 Apr, Depression with anxiety F41.8 [place] [address] 65203- 8644 Apr, Depression with anxiety F41.8 [facility] IN [place] [address] 14752 -3914 Apr, Cough R05 and Viral URI J06.9 [facility] [place] [address] 28724 -6892 Mar, Acute nasopharyngitis J00 [place] [id number] [place] [address] 19790- 4056 Mar, Depression with anxiety F41.8 [place] [address] [address] [id number] [place] [address] 57753- 9192 Jan, Chronic GERD K21.9 ; Depression with anxiety F41.8 ; Elevated liver enzymes R74.8 and Rash and nonspecific skin eruption R21 [facility] [place] [address] [id number] [place] [address] 54819 -5214 Dec, Pharyngitis due to other organism J02.8 [...]
--- OUTSIDE RECORDS SUMMARY | 2018-01-02 14:39 | XMS REPORT ---
Author Author PARADISE BAKER [facility] Address [address] [place] [address] Care Team Providers Care Electronics Engineering Manager Name Role Phone PARADISE BAKER Unavailable PROBLEMS Type Condition ICD9-CM Code FPD87-LP Code Onset Dates Condition Status SNOMED Code Problem Elevated liver enzymes R74.8 Active 957534060 Problem Depression with anxiety F41.8 Active 729673696 Problem Chronic GERD K21.9 Active 347152967 ALLERGIES Substance Reaction Event Type Date Status Morphine Sulfate Unknown Drug Allergy Apr, Active Amoxicillin Unknown Drug Allergy Apr, Active ENCOUNTERS Encounter Location Date Diagnosis [facility] [address] [place] [id number] [place] [address] 99514- 3602 Aug, Depression with anxiety F41.8 [facility] [id number] [place] [address] 63485- 5607 Aug, [place] [address] [place] [address] [id number] [place] [address] 58754- 6311 Aug, Chronic GERD K21.9 and Nausea R11.0 [facility] [address] [place] [address] [id number] [place] [address] 19857- 8393 Jul, Depression with anxiety F41.8 [facility] [id number] [place] [address] 11280- 3160 Jul, [facility] [address] [place] [address] [id number] [place] [address] 72689- 1619 June, Depression with anxiety F41.8 [facility] [id number] [place] [address] 17172 -0599 June, Skin infection L08.9 [facility] [address] [id number] [place] [address] 25700- 1534 June, [facility] [address] [place] [address] [id number] [place] [address] 53578- 1076 May, Depression with anxiety F41.8 [facility] [address] [place] [id number] [place] [address] 85456- 0016 Apr, Chronic GERD K21.9 ; Depression with anxiety F41.8 and Rash and nonspecific skin eruption R21 [place] [address] [address] [id number] [place] [address] 38112- 9308 Apr, Depression with anxiety F41.8 [place] [address] 15807- 7135 Apr, Depression with anxiety F41.8 [facility] [place] [address] 91549 -9155 Apr, Cough R05 and Viral URI J06.9 [facility] [place] [address] [address] [id number] [place] [address] 20690 -0034 Mar, Acute nasopharyngitis J00 [place] [address] 55632- 4839 Mar, Depression with anxiety F41.8 [place] [address] [place] [address] [id number] [place] [address] 91305- 2652 Jan, Chronic GERD K21.9 ; Depression with anxiety F41.8 ; Elevated liver enzymes R74.8 and Rash and nonspecific skin eruption R21 [facility] [place] [address] [address] [id number] [place] [address] 40584 -0791 Dec, Pharyngitis due to other organism J02.8 IMMUNIZATIONS No Known Immunizations SOCIAL HISTORY Never Assessed REASON FOR VISIT Anxiety follow up-AHarrymanRN, Rash on legs still present, would like to try a scream or something PLAN OF CARE Activity Details Follow Up 6 Months, prn Reason:xanax VITAL SIGNS Height 67 in 2017-05-19 Weight 141.6 lbs 2017-05-19 Temperature 98.0 degrees Fahrenheit 2017-05-19 Heart Rate 90 bpm 2017-05-19 Respiratory Rate 18 2017-05-19 BMI 22.18 kg/m2 2017-05-19 Blood pressure systolic 116 mmHg 2017-05-19 Blood pressure diastolic 70 mmHg 2017-05-19 MEDICATIONS Medication Instructions Dosage Frequency Start Date End Date Duration Status ProAir HFA Active Promethazine HCl 25 MG Orally every 12 hrs prn 1 tablet as needed Active Ranitidine HCl 150 MG Orally Once a day 1 tablet at bedtime 24h 30 day(s) Active Protonix 40 mg Orally Once a day 1 tablet 24h 30 days Active Loratadine 10 mg Orally Once a day 1 tablet 24h 16 Apr, 2018 30 day(s) Active Lexapro 20 mg Orally Once a day 0.5 tablet 24h 30 days Active Xanax 0.5 MG Orally Once a day prn 1 tablet 28 days Active Triamcinolone Acetonide 0.1 % Externally Twice a day 1 application to affected area 12h Apr, Active RESULTS No Results PROCEDURES No Known procedures INSTRUCTIONS MEDICATIONS ADMINISTERED No Known Medications MEDICAL (GENERAL) HISTORY Type Description Date Medical History gastroesophageal reflux disease (GERD) Medical History Anxiety Surgical History hernia repair May 2016 Surgical History cholecystectomy 2012 Surgical History section x3 Surgical History Gastric emptying test EGD, ECPG 2016
--- OUTSIDE RECORDS SUMMARY | 2018-01-02 14:39 | XMS REPORT ---
Author Author PARADISE BAKER [facility] Address [address] [place] [address] Care Team Providers Care Sweet Pickle Maker Name Role Phone PARADISE BAKER Unavailable PROBLEMS Type Condition ICD9-CM Code JJU53-AL Code Onset Dates Condition Status SNOMED Code Problem Elevated liver enzymes R74.8 Active 350457548 Problem Depression with anxiety F41.8 Active 506017370 Problem Chronic GERD K21.9 Active 143099298 ALLERGIES No Information ENCOUNTERS Encounter Location Date Diagnosis [place] [id number] [place] [address] 84943- 5610 Sep, [facility] [id number] [place] [address] 93592- 0611 Aug, Depression with anxiety F41.8 [facility] [id number] [place] [address] 03233- 4112 Aug, [place] [address] [place] [id number] [place] [address] 84309- 5697 Aug, Chronic GERD K21.9 and Nausea R11.0 [facility] [address] [place] [id number] [place] [address] 16025- 8558 Jul, Depression with anxiety F41.8 [facility] [id number] [place] [address] 73174- 5305 Jul, [facility] [address] [place] [id number] [place] [address] 20008- 7229 June, Depression with anxiety F41.[address] [facility] [id number] [place] [address] 51880 -7227 10 Jun, 2017 Skin infection L08.9 [facility] [id number] [place] [address] 36829- 5585 June, [facility] [address] 84480- 6009 May, Depression with anxiety F41.8 [place] [address] [id number] [place] [address] 11479- 2240 Apr, Chronic GERD K21.9 ; Depression with anxiety F41.8 and Rash and nonspecific skin eruption R21 [place] [address] [place] [id number] [place] [address] 88933- 3558 Apr, Depression with anxiety F41.8 [place] [address] 20278- 2149 Apr, Depression with anxiety F41.8 [facility] [place] [address] 51301 -7890 Apr, Cough R05 and Viral URI J06.[address] [facility] [place] [address] [id number] [place] [address] 82195 -2586 Mar, Acute nasopharyngitis J00 [place] [address] 19463- 4157 Mar, Depression with anxiety F41.8 [place] [address] 73202- 2300 Jan, Chronic GERD K21.9 ; Depression with anxiety F41.8 ; Elevated liver enzymes R74.8 and Rash and nonspecific skin eruption R21 [facility] [place] [address] [id number] [place] [address] 67411 -3315 Dec, Pharyngitis due to other organism J02.8 I[facility]UN[facility] No Known Immunizations SOCIAL HISTORY Never Assessed REASON FOR VISIT bp check-AHarrymanRN PLAN OF CARE VITAL SIGNS Height 67 in 2017-07-01 Blood pressure systolic 118 mmHg 2017-07-01 Blood pressure diastolic 68 mmHg 2017-07-01 MEDICATIONS Unknown Medications RESULTS No Results PROCEDURES No Known procedures INSTRUCTIONS MEDICATIONS ADMINISTERED No Known Medications MEDICAL (GENERAL) HISTORY Type Description Date Medical History gastroesophageal reflux disease (GERD) Medical History Anxiety Surgical History hernia repair May 2016 Surgical History cholecystectomy 2012 Surgical History section x3 Surgical History Gastric emptying test EGD, ECPG 2017
--- OUTSIDE RECORDS SUMMARY | 2018-01-02 14:39 | XMS REPORT ---
Author Author ROBERT GRIFFITH [facility] IN [facility] Address [address] [place] [address] Care Team Providers Care Stamping Machine Operator Name Role Phone ROBERT GRIFFITH Unavailable PROBLEMS Type Condition ICD9-CM Code [id number] Code Onset Dates Condition Status SNOMED Code Problem Elevated liver enzymes R74.8 Active 479006988 Problem Depression with anxiety F41.8 Active 697332898 Problem Chronic GERD K21.9 Active 902839452 ALLERGIES Substance Reaction Event Type Date Status Morphine Sulfate Unknown Drug Allergy Mar, Active Amoxicillin Unknown Drug Allergy Mar, Active ENCOUNTERS Encounter Location Date Diagnosis [place] [address] [address] Jul, Depression with anxiety F41.8 [place] [address] [address] Jul, [place] [address] [place] [id number] [place] [address] June, Depression with anxiety F41.8 [facility] [address] [place] [id number] [place] [address] June, Skin infection L08.9 [facility] [address] [place] [id number] [place] [address] June, [place] [address] [address] May, Depression with anxiety F41.8 [place] [address] [place] [id number] [place] [address]85[address] Apr, Chronic GERD K21.9 ; Depression with anxiety F41.8 and Rash and nonspecific skin eruption R21 [place] [id number] [address] Apr, Depression with anxiety F41.8 [place] [address] [place] [id number] [place] [address]- 1149 Apr, Depression with anxiety F41.8 [facility] [address] [place] [id number] [place] [address] Apr, Cough R05 and Viral URI J06.9 [facility] [place] [address] [id number] [place] [address] Mar, Acute nasopharyngitis J00 [place] [address] [place] [id number] [place] [address] 25[address]- 9354 Mar, Depression with anxiety F41.8 [place] [address] [id number] [place] [address] 35[address] Jan, Chronic GERD K21.9 ; Depression with anxiety F41.8 ; Elevated liver enzymes R74.8 and Rash and nonspecific skin eruption R21 [facility] [place] [address] [id number] [place] [address] Dec, Pharyngitis due to other organism J02.8 IMMUNIZATIONS No Known Immunizations SOCIAL HISTORY Never Assessed REASON FOR VISIT flu symptoms, cough, congestion x3 days----DBennettRN PLAN OF CARE Activity Details Follow Up prn Reason: VITAL SIGNS Height 67 in 2017-03-26 Weight 143 lbs 2017-03-26 Temperature 98.7 degrees Fahrenheit 2017-03-26 Heart Rate 90 bpm 2017-03-26 Respiratory Rate 20 2017-03-26 BMI 22.39 kg/m2 2017-03-26 Blood pressure systolic 124 mmHg 2017-03-26 Blood pressure diastolic 70 mmHg 2017-03-26 MEDICATIONS Medication Instructions Dosage Frequency Start Date End Date Duration Status Protonix 40 mg Orally Once a day 1 tablet 24h 30 days Active Xanax 0.5 MG Orally Once a day prn 1 tablet 28 days Active Promethazine HCl 25 MG Orally every 12 hrs prn 1 tablet as needed Jan Active Lexapro 20 mg Orally Once a day 0.5 tablet 24h 30 days Active Ranitidine HCl 150 MG Orally Once a day 1 tablet at bedtime 24h Jan, 30 day(s) Active Loratadine 10 mg Orally Once a day 1 tablet 24h Jan, Jul, 30 day(s) Active RESULTS Name Result Date Reference Range INFLUENZA A & B (IN HOUSE) 2017-03-26 INFLUENZA A negative INFLUENZA B negative Control + Lot # [id number] Exp date 06/16/19 PROCEDURES Procedure Date Ordered Result Body Site INFLUENZA ASSAY W/OPTIC Mar 26, 2017 INSTRUCTIONS MEDICATIONS ADMINISTERED No Known Medications MEDICAL (GENERAL) HISTORY Type Description Date Medical History gastroesophageal reflux disease (GERD) Medical History Anxiety Surgical History hernia repair May 2016 Surgical History cholecystectomy 2012 Surgical History section x3 Surgical History Gastric emptying test EGD, [facility] 2017
--- OUTSIDE RECORDS SUMMARY | 2018-01-02 14:39 | XMS REPORT ---
Author Author RAFFY HARDY [facility] IN [facility] Address [address] [place] [address] Care Team Providers Care Slitting Machine Operator Helper Name Role Phone HARDYVAMSIRAFFY Unavailable PROBLEMS Type Condition ICD9-CM Code [id number] Code Onset Dates Condition Status SNOMED Code Problem Elevated liver enzymes R74.8 Active 238032119 Problem Depression with anxiety F41.8 Active 943743333 Problem Chronic GERD K21.9 Active 076932727 ALLERGIES Substance Reaction Event Type Date Status Morphine Sulfate Unknown Drug Allergy Apr, Active Amoxicillin Unknown Drug Allergy Apr, Active ENCOUNTERS Encounter Location Date Diagnosis [place] [address] [place] [id number] [place] [address] Jul, Depression with anxiety F41.8 [facility] [address] [place] [id number] [place] [address]244- 0569 Jul, [facility] [address] [place] [id number] [place] [address] 14284- 2084 June, Depression with anxiety F41.8 [facility] [address] [place] [place] [id number] [place] [address] June, Skin infection L08.9 [facility] [address] [place] [id number] [place] [address] 60[address] June, [facility] [address] [place] [id number] [place] [address] 61578- 0319 May, Depression with anxiety F41.8 [facility] [address] [place] [id number] [place] [address] 56[address]- 0733 Apr, Chronic GERD K21.9 ; Depression with anxiety F41.8 and Rash and nonspecific skin eruption R21 [facility] [id number], [place] [address] Apr, Depression with anxiety F41.8 [place] [address] [place] [place] [id number] [place] [address]- 30[address] Apr, Depression with anxiety F41.8 [facility] IN [facility] [address] [place] [id number] [place] [address] Apr, Cough R05 and Viral URI J06.9 [facility] IN [place] [address] [place] [id number] [place] [address] Mar, Acute nasopharyngitis J00 [place] [address] [address] Mar, Depression with anxiety F41.8 [place] [address] [place] [id number] [place] [address]- [address] Jan, Chronic GERD K21.9 ; Depression with anxiety F41.8 ; Elevated liver enzymes R74.8 and Rash and nonspecific skin eruption R21 [facility] IN [place] [id number] [place] [address]41 [address] Dec, Pharyngitis due to other organism J02.8 IMMUNIZATIONS No Known Immunizations SOCIAL HISTORY Never Assessed REASON FOR VISIT flu symptoms Pt c/o chest tightness now with her cough she has had for about a week, also has a lot of sinus pain and pressure JACQUIE Jenkins PLAN OF CARE Activity Details Follow Up prn Reason: VITAL SIGNS Height 67 in 2017-04-01 Weight 138.6 lbs 2017-04-01 Temperature 99.1 degrees Fahrenheit 2017-04-01 Heart Rate 90 bpm 2017-04-01 Respiratory Rate 20 2017-04-01 BMI 21.71 kg/m2 2017-04-01 Blood pressure systolic 126 mmHg 2017-04-01 Blood pressure diastolic 72 mmHg 2017-04-01 MEDICATIONS Medication Instructions Dosage Frequency Start Date End Date Duration Status Loratadine 10 mg Orally Once a day 1 tablet 24h Jan, Jul, 30 day(s) Active Xanax 0.5 MG Orally Once a day prn 1 tablet 28 days Active Protonix 40 mg Orally Once a day 1 tablet 24h 30 days Active Lexapro 20 mg Orally Once a day 0.5 tablet 24h 30 days Active Promethazine HCl 25 MG Orally every 12 hrs prn 1 tablet as needed Jan Active Ranitidine HCl 150 MG Orally Once a day 1 tablet at bedtime 24h Jan, 30 day(s) Active ProAir HFA Active RESULTS Name Result Date Reference Range INFLUENZA A & B (IN HOUSE) 2017-04-01 INFLUENZA A negative INFLUENZA B negative Control + Lot # [id number] Exp date 2019-07-13 PROCEDURES Procedure Date Ordered Result Body Site INFLUENZA ASSAY W/OPTIC Apr 01, 2017 INSTRUCTIONS MEDICATIONS ADMINISTERED No Known Medications MEDICAL (GENERAL) HISTORY Type Description Date Medical History gastroesophageal reflux disease (GERD) Medical History Anxiety Surgical History hernia repair May 2016 Surgical History cholecystectomy 2012 Surgical History section x3 Surgical History Gastric emptying test EGD, [facility] 2016
--- OUTSIDE RECORDS SUMMARY | 2018-01-02 14:40 | XMS REPORT ---
Author Author PARADISE BAKER Organization [facility] Address [address] [place] [address] Care Team Providers Care Plant Utility Person Name Role Phone PARADISE BAKER Unavailable PROBLEMS Type Condition ICD9-CM Code [id number] Code Onset Dates Condition Status SNOMED Code Problem Elevated liver enzymes R74.8 Active 502356082 Problem Depression with anxiety F41.8 Active 688330091 Problem Chronic GERD K21.9 Active 108935465 ALLERGIES Substance Reaction Event Type Date Status Morphine Sulfate Unknown Drug Allergy Jan, Active Amoxicillin Unknown Drug Allergy Jan, Active ENCOUNTERS Encounter Location Date Diagnosis [facility] [address] [place] [id number] [place] [address]59[address] Jul, [facility] [address] [place] [id number] [place] [address]77- 5[address] June, Depression with anxiety F41.8 [facility] [address] [place] [id number] [place] [address]66 [address] June, Skin infection L08.9 [facility] [address] [place] [id number] [place] [address] 00888- [address] June, [facility] [address] [place] [id number] [place] [address] 67188- 9400 May, Depression with anxiety F41.8 [facility] [address] [place] [id number] [place] [address] 12331- [address]994 Apr, Chronic GERD K21.9 ; Depression with anxiety F41.8 and Rash and nonspecific skin eruption R21 [facility] [address] [place] [id number] [place] [address] 93272- 1390 Apr, Depression with anxiety F41.8 [facility] [address] [address] Apr, Depression with anxiety F41.8 [facility] [place] [address] [place] [id number] [place] [address]1984 [address] Apr, Cough R05 and Viral URI J06.9 [facility] [address] [place] [id number] [place] [address]1881 -[phone] Mar, Acute nasopharyngitis J00 [place] [address] [place] [id number] [place] [address] 52[address]- [address] Mar, Depression with anxiety F41.[address] [address] Jan, Chronic GERD K21.9 ; Depression with anxiety F41.8 ; Elevated liver enzymes R74.8 and Rash and nonspecific skin eruption R21 [facility] [place] [id number] [place] [address]277 [address] Dec, Pharyngitis due to other organism J02.8 IMMUNIZATIONS No Known Immunizations SOCIAL HISTORY Never Assessed REASON FOR VISIT Establish Care----Stephon, hiatal hernia surgery in May by Dr. Quintero, symptoms have returned., rash on bilateral legs, does not itch PLAN OF CARE Activity Details Follow Up 3 months or as indicated by lab Reason: VITAL SIGNS Height 67 in 2017-02-03 Weight 136 lbs 2017-02-03 Temperature 97.5 degrees Fahrenheit 2017-02-03 Heart Rate 70 bpm 2017-02-03 Respiratory Rate 20 2017-02-03 BMI 21.30 kg/m2 2017-02-03 Blood pressure systolic 122 mmHg 2017-02-03 Blood pressure diastolic 80 mmHg 2017-02-03 MEDICATIONS Medication Instructions Dosage Frequency Start Date End Date Duration Status Lexapro 20 mg Orally Once a day 0.5 tablet 24h 30 days Active Promethazine HCl 25 MG Orally every 12 hrs prn 1 tablet as needed Jan Active Loratadine 10 mg Orally Once a day 1 tablet 24h Jan, Jul, 30 day(s) Active Ranitidine HCl 150 MG Orally Once a day 1 tablet at bedtime 24h Jan, 30 day(s) Active Protonix 40 mg Orally Once a day 1 tablet 24h 30 days Active Xanax 0.5 MG Orally Once a day prn 1 tablet 28 days Active RESULTS No Results PROCEDURES Procedure Date Ordered Result Body Site COMPREHEN METABOLIC PANEL Feb 03, 2017 ASSAY OF MAGNESIUM Feb 03, 2017 VENIPUNCT, ROUTINE* Feb 03, 2017 ANTISTREPTOLYSIN O, TITER Feb 03, 2017 COMPLETE CBC W/AUTO DIFF WBC Feb 03, 2017 RBC SED RATE, AUTOMATED Feb 03, 2017 C-REACTIVE PROTEIN Feb 03, 2017 INSTRUCTIONS MEDICATIONS ADMINISTERED No Known Medications MEDICAL (GENERAL) HISTORY Type Description Date Medical History gastroesophageal reflux disease (GERD) Medical History Anxiety Surgical History hernia repair May 2016 Surgical History cholecystectomy 2012 Surgical History section x3 Surgical History Gastric emptying test EGD, [facility] 2016
--- OUTSIDE RECORDS SUMMARY | 2018-01-02 14:40 | XMS REPORT | Continuity of Care Document ---
Author Author [facility] Organization [facility] Address Unknown Phone Unavailable Allergies Active Description Code Type Severity Reaction Onset Reported/Identified Relationship to Patient Clinical Status Yes MORPHINE MORPHINE MODERATE Yes PENICILLINS PENICILLINS MODERATE Yes TRAMADOL TRAMADOL MODERATE Yes MORPHINE MODERATE DERMATOLOGICAL - HIV Yes PENICILLINS MODERATE DERMATOLOGICAL - MICKI Yes TRAMADOL MODERATE ITCHING Yes Penicillins [id number] Drug Allergy Unknown RASH 05/12/2012 Yes morphine [id number] Drug Allergy Mild RASH 05/18/2012 Medications Medication Packaging Start Date Stop Date Route Dosage Sig ONDANSETRON VIAL INJ 4 MG/2CC (ZOFRAN 2CC VIAL) MG 01/25/2016 01/25/2016 PRN ONCE FENTANYL AMP INJ 100 MCG/2CC MCG 01/25/2016 ONCE&1403 FENTANYL AMP INJ 100 MCG/2CC MCG 01/25/2016 ONCE&1637 LACTATED RINGERS 1000CC IV BAG INJ 0 ml 05/12/2016 05/13/2016 CONTINUOUSEVERY 0 Hour LACTATED RINGERS 1000CC IV BAG INJ 0 ml 06/10/2016 06/11/2016 CONTINUOUSEVERY 0 Hour ONDANSETRON VIAL INJ 4 MG/2CC (ZOFRAN 2CC VIAL) MG 06/10/2016 06/10/2016 PRN ONCE FENTANYL INJ 100 MCG/2CC VIAL MCG 06/10/2016 06/10/2016 ONCE&0816 MIDAZOLAM 2CC VIAL INJ 1 MG/CC (VERSED 2CC VIAL) MG 06/10/2016 06/10/2016 ONCE&0850 ONDANSETRON TAB 4 MG (ZOFRAN) MG 06/10/2016 PRN ONCE DEXAMETHASONE TAB 4 MG (DECADRON) MG 06/10/2016 06/10/2016 ONCE&1000 LEVOFLOXACIN PREMIX IV BAG INJ 500 MG/100CC (LEVAQUIN IV PREMIX 100CC BAG) MG 06/10/2016 06/10/2016 ONCE&1045 D5 LAC RINGERS 1000CC IV BAG INJ 0 ml 06/10/2016 06/17/2016 CONTINUOUSEVERY 0 Hour OXYCODONE 5MG/APAP 325MG TAB 0 (PERCOCET-5) TAB 06/10/2016 06/17/2016 PRN Q4H ONDANSETRON VIAL INJ 4 MG/2CC (ZOFRAN 2CC VIAL) MG 06/10/2016 06/17/2016 PRN Q4H ENALAPRIL VIAL INJ 1.25 MG/CC (VASOTEC VIAL) MG 06/10/2016 06/13/2016 PRN Q6H PANTOPRAZOLE TAB 40 MG (PROTONIX) Dose(s) 06/10/2016 06/17/2016 BID&0800,2000 ALPRAZOLAM TAB 0.25 MG (XANAX) Dose(s) 06/10/2016 06/19/2016 QHS&2100 ESCITALOPRAM TAB 10 MG (LEXAPRO) Dose(s) 06/10/2016 06/14/2016 QHS&2100 NORMAL SALINE 1000CC IV BAG INJ 0.9 % (NS 1000CC IV BAG) ml 06/10/2016 06/25/2016 CONTINUOUSEVERY 0 Hour DEMEROL CAD APPLICATION SUPPORT SPECIALIST SYRINGE INJ 300 MG/30CC (MEPERIDINE CAD APPLICATION SUPPORT SPECIALIST SYRINGE 10MG/CC ) MG 06/10/2016 06/13/2016 CONTINUOUSEVERY 0 Hour SCOPOLAMINE PATCH PAT 1.5 MG (TRANSDERM SCOP) MG 06/11/2016 06/17/2016 Q72H&0800 Problems Date Dx Coded Attending Type Code Diagnosis Diagnosed By 12/14/2013 ELIDA KIRK DO Ot 354.0 12/14/2013 ELIDA KIRK DO Ot 648.81 12/14/2013 ELIDA KIRK DO Ot 648.91 12/14/2013 ELIDA KIRK DO Ot 654.21 12/14/2013 ELIDA KIRK DO Ot V06.1 12/14/2013 ELIDA KIRK DO Ot V27.0 10/23/2015 A 530.81 ESOPHAGEAL REFLUX 10/23/2015 A K21.0 GASTRO- ESOPHAGEAL REFLUX DISEASE WITH ESOPHAGITIS 01/01/2016 A 577.0 ACUTE PANCREATITIS 01/01/2016 A K85.90 ACUTE PANCREATITIS WITHOUT NECROSIS OR INFECTION, UNSP 01/07/2016 KELLIE FRANCO CAREER AND TECHNOLOGY EDUCATION TEACHER Ot R10.9 UNSPECIFIED ABDOMINAL PAIN 01/07/2016 KELLIE FRANCO CAREER AND TECHNOLOGY EDUCATION TEACHER Ot R94.5 ABNORMAL RESULTS OF LIVER FUNCTION STUDI 01/08/2016 KELLIE FRANCO CAREER AND TECHNOLOGY EDUCATION TEACHER Ot R10.9 UNSPECIFIED ABDOMINAL PAIN 01/08/2016 KELLIE FRANCO CAREER AND TECHNOLOGY EDUCATION TEACHER Ot R94.5 ABNORMAL RESULTS OF LIVER FUNCTION STUDI 01/25/2016 Brittney Nicholson A 789.07 ABDOMINAL PAIN, GENERALIZED 01/25/2016 Brittney Nicholson W 790.5 OTHER NONSPECIFIC ABNORMAL SERUM ENZYME LEVELS 01/25/2016 Brittney Nicholson A R10.84 GENERALIZED ABDOMINAL PAIN 01/25/2016 Brittney Nicholson W R74.8 ABNORMAL LEVELS OF OTHER SERUM ENZYMES 01/29/2016 KELLIE FRANCO CAREER AND TECHNOLOGY EDUCATION TEACHER Ot R10.9 UNSPECIFIED ABDOMINAL PAIN 01/29/2016 KELLIE FRANCO CAREER AND TECHNOLOGY EDUCATION TEACHER Ot R94.5 ABNORMAL RESULTS OF LIVER FUNCTION STUDI 05/12/2016 Anamaria Quintero 530.81 05/12/2016 Anamaria Quintero 535.50 UNSPECIFIED GASTRITIS AND GASTRODUODENITIS, WITHOUT MENTION OF HEMORRHAGE 05/12/2016 Anamaria Quintero 552.3 DIAPHRAGMATIC HERNIA WITH OBSTRUCTION 05/12/2016 Anamaria Quintero 787.02 NAUSEA ALONE 05/12/2016 Anamaria Quintero 787.3 FLATULENCE, ERUCTATION, AND GAS PAIN 05/12/2016 Anamaria Quintero K21.9 GASTRO-ESOPHAGEAL REFLUX DISEASE WITHOUT ESOPHAGITIS 05/12/2016 Anamaria Quintero K29.60 OTHER GASTRITIS WITHOUT BLEEDING 05/12/2016 Anamaria Quintero K44.9 DIAPHRAGMATIC HERNIA WITHOUT OBSTRUCTION OR GANGRENE 05/12/2016 Anamaria Quintero R11.0 NAUSEA 05/12/2016 Anamaria Quintero R14.0 ABDOMINAL DISTENSION (GASEOUS) 06/11/2016 Anamaria Quintero 493.90 ASTHMA, UNSPECIFIED 06/11/2016 Anamaria Quintero 530.81 ESOPHAGEAL REFLUX 06/11/2016 Anamaria Quintero 552.3 DIAPHRAGMATIC HERNIA WITH OBSTRUCTION 06/11/2016 Anamaria Quintero J45.909 UNSPECIFIED ASTHMA, UNCOMPLICATED 06/11/2016 Anamaria Quintero K21.9 GASTRO-ESOPHAGEAL REFLUX DISEASE WITHOUT ESOPHAGITIS 06/11/2016 Anamaria Quintero K44.9 DIAPHRAGMATIC HERNIA WITHOUT OBSTRUCTION OR GANGRENE 12/06/2017 KELLIE FRANCO APRN Ot R10.9 UNSPECIFIED ABDOMINAL PAIN 12/06/2017 KLELIE FRANCO APRN Ot R94.5 ABNORMAL RESULTS OF LIVER FUNCTION STUDI 12/14/2017 CARITO DHILLON MD, Ot R10.11 RIGHT UPPER QUADRANT PAIN 12/14/2017 CARITO DHILLON MD, Ot R16.0 HEPATOMEGALY, NOT ELSEWHERE CLASSIFIED 12/14/2017 CARITO DHILLON MD, Ot Z90.49 ACQUIRED ABSENCE OF OTHER SPECIFIED PART Procedures There is no data. Results Test Result Range Lipase - 01/21/16 09:15 Lipase 27 U/L 7-59 Urinalysis - 01/25/16 13:54 Icotest N/A Negative Urine Volume Urine Volume Sufficient (10mL) Urine-Appearance Clear Clear Urine-Bacteria 1+ Urine-Bilirubin Negative Negative Urine-Blood Trace-intact Negative Urine-Color Yellow Colorless-Lt. Yellow Urine-Epithelial Cells 0-5/HPF Urine-Glucose Negative Negative Urine-Ketones Negative Negative Urine-Leukocytes Negative Negative Urine-Nitrite Negative Negative Urine-Other Urine Saved if Culture Needed (48hrs from time of collection) Urine-pH 6.0 5-8.5 Urine-Protein Negative Negative Urine-RBC Few/HPF Urine-Specific [place] 1.020 1.000-1.030 Urine-WBC Few/HPF Urobilinogen 0.2 E.U./dL 0.2-1.0 Gamma Glutamyl Transferase - 01/25/16 16:27 GGT 56 U/L 5-40 Vitamin D, 25 OH - 02/20/16 08:01 Vitamin D, 25 OH 26.80 ng/mL 25.00-100.00 Complement C1 Esterase Inhibitor, Functional - 02/20/16 08:01 C1 EST.INHIB.FUNCT. 100 %MEAN NORMAL BMP - 05/07/16 13:46 Anion Gap 15 6-14 BUN 11 mg/dL 5-25 Calcium 9.6 mg/dL 8.3-10.4 Chloride 105 mmol/L 95-114 CO2 24 mEq/L 22-33 Creat 0.71 mg/dL 0.50-1.50 eGFR 94 mL/min/1.73m2 >59 Glucose 82 mg/dL 70-110 Osmo 288 280-295 Potassium 4.3 mmol/L 3.5-5.3 Sodium 140 mmol/L 134-148 MRSA Screen - 05/07/16 13:46 FINAL CULTURE RESULTS MRSA Negative Nasal Culture MEDIA PLATED Setup at 14:10 on 05/07/2016 Test-Serum - 05/12/16 09:47 Preg Test-S Negative Negative Surgical Pathology - 05/12/16 10:54 Surg Path Sent to [facility] Comprehensive Metabolic Panel - 06/03/16 13:11 Albumin 4.4 g/dL 3.6-5.1 ALP 65 U/L 35-130 ALT 13 U/L 6-45 Anion Gap 14 6-14 AST 15 U/L 2-40 BUN 12 mg/dL 5-25 Calcium 9.2 mg/dL 8.3-10.4 Chloride 103 mmol/L 95-114 CO2 27 mEq/L 22-33 Creat 0.70 mg/dL 0.50-1.50 eGFR 95 mL/min/1.73m2 >59 Globulin 2.7 g/dL 2.3-3.5 Glucose 101 mg/dL 70-110 Osmo 289 280-295 Potassium 3.9 mmol/L 3.5-5.3 Sodium 140 mmol/L 134-148 TBil 0.2 mg/dL 0.2-1.2 TP 7.1 g/dL 6.0-8.3 MRSA Screen - 06/03/16 13:11 FINAL CULTURE RESULTS MRSA Negative Nasal Culture MEDIA PLATED Setup at 13:22 on 06/03/2016 XM (2) LRPC - 06/10/16 07:44 CROSSMATCH COMPATIBLE X 2 Hct 40.6 % 36.0-46.0 Hgb 13.2 g/dL 13.0-15.0 Urine Culture - 06/10/16 09:19 PRELIM CULTURE RESULTS No Growth 24 hours FINAL CULTURE RESULTS No Growth 48 hours MEDIA PLATED Setup at 11:16 on 06/10/2016 CULTURE SOURCE cath BMP - 06/10/16 18:00 Anion Gap 14 6-14 BUN 10 mg/dL 5-25 Calcium 8.6 mg/dL 8.3-10.4 Chloride 105 mmol/L 95-114 CO2 21 mEq/L 22-33 Creat 0.72 mg/dL 0.50-1.50 eGFR 92 mL/min/1.73m2 >59 Glucose 235 mg/dL 70-110 Osmo 287 280-295 Potassium 4.0 mmol/L 3.5-5.3 Sodium 136 mmol/L 134-148 BMP - 06/11/16 07:52 Anion Gap 11 6-14 BUN 7 mg/dL 5-25 Calcium 8.4 mg/dL 8.3-10.4 Chloride 105 mmol/L 95-114 CO2 25 mEq/L 22-33 Creat 0.65 mg/dL 0.50-1.50 eGFR 104 mL/min/1.73m2 >59 Glucose 146 mg/dL 70-110 Osmo 284 280-295 Potassium 3.7 mmol/L 3.5-5.3 Sodium 137 mmol/L 134-148 CRP - 02/03/17 12:06 C-REACTIVE PROTEIN 3.2 mg/L <8.0 PDM - PAIN MGMT (PROFILE 3 WITH CONFIRMATION) - 10/28/17 10:33 Prescribed Drug 1 Xanax(TM) NRG Creatinine 16.0 mg/dL > or=20.0 pH 6.53 4.5 - 9.0 Oxidant NEGATIVE mcg/mL <200 Amphetamines NEGATIVE ng/mL <500 medMATCH Amphetamines CONSISTENT NRG Benzodiazepines POSITIVE ng/mL <100 Marijuana Metabolite NEGATIVE ng/mL <20 medMATCH Marijuana Metab CONSISTENT NRG Cocaine Metabolite NEGATIVE ng/mL <150 medMATCH Cocaine Metab CONSISTENT NRG Opiates NEGATIVE ng/mL <100 medMATCH Opiates CONSISTENT NRG Oxycodone NEGATIVE ng/mL <100 medMATCH Oxycodone CONSISTENT NRG COMMENT NRG Alphahydroxyalprazolam 35 ng/mL <25 medMATCH aOH alprazolam CONSISTENT NRG Alphahydroxymidazolam NEGATIVE ng/mL <50 medMATCH aOH midazolam CONSISTENT NRG Alphahydroxytriazolam NEGATIVE ng/mL <50 medMATCH aOH triazolam CONSISTENT NRG Aminoclonazepam NEGATIVE ng/mL <25 medMATCH Aminoclonazepam CONSISTENT NRG Hydroxyethylflurazepam NEGATIVE ng/mL <50 medMATCH OH,Et flurazepam CONSISTENT NRG Lorazepam NEGATIVE ng/mL <50 medMATCH Lorazepam CONSISTENT NRG Nordiazepam NEGATIVE ng/mL <50 medMATCH Nordiazepam CONSISTENT NRG Oxazepam NEGATIVE ng/mL <50 medMATCH Oxazepam CONSISTENT NRG Temazepam NEGATIVE ng/mL <50 medMATCH Temazepam CONSISTENT NRG Specific [place] 1.005 > or=1.003 CBC - 11/29/17 12:31 WHITE BLOOD CELL COUNT 7.7 Thousand/uL 3.8-10.8 RED BLOOD CELL COUNT 4.66 Million/uL 3.80-5.10 HEMOGLOBIN 13.3 g/dL 11.7-15.5 HEMATOCRIT 40.2 % 35.0-45.0 MCV 86.3 fL 80.0-100.0 MCH 28.5 pg 27.0-33.0 MCHC 33.1 g/dL 32.0-36.0 RDW 13.1 % 11.0-15.0 PLATELET COUNT 304 Thousand/uL 140-400 MPV 9.6 fL 7.5-12.5 ABSOLUTE NEUTROPHILS 4628 cells/uL 3869-3241 ABSOLUTE LYMPHOCYTES 2333 cells/uL 850-3900 ABSOLUTE MONOCYTES 585 cells/uL 200-950 ABSOLUTE EOSINOPHILS 123 cells/uL 15-500 ABSOLUTE BASOPHILS 31 cells/uL 0-200 NEUTROPHILS 60.1 % NRG LYMPHOCYTES 30.3 % NRG MONOCYTES 7.6 % NRG EOSINOPHILS 1.6 % NRG BASOPHILS 0.4 % NRG LIPASE - 11/29/17 12:31 LIPASE 22 U/L 7-60 Encounters ACCT No. Visit Date/Time Discharge Status Pt. Type Provider Facility Loc./Unit Complaint [id number] 12/13/2017 06:36:00 12/13/2017 23:59:59 CLS Outpatient CARITO DHILLON MD [facility] RAD RUQ ABD PAIN [id number] 01/07/2016 07:35:00 01/07/2016 23:59:59 CLS Outpatient KELLIE FRANCO APRN [facility] RAD ABD PAIN,ELEVATED LFT 'S [id number] 12/12/2013 08:00:00 12/14/2013 12:15:00 DIS Inpatient ELIDA KIRK DO [facility] LDRP [id number] 12/06/2013 07:25:00 12/06/2013 23:59:59 CLS Outpatient [id number] 01/02/2018 14:33:00 ACT Emergency DANE SAWANT, LAVELL Winkler [facility] ER SIDE PAIN,FEVER [id number] 06/10/2016 00:00:00 06/11/2016 15:00:00 DIS Outpatient Anamaria Quintero [facility] MED-SURG [id number] 06/03/2016 12:55:00 06/03/2016 23:59:00 DIS Outpatient Anamaria Quintero [id number] 05/13/2016 10:03:00 05/13/2016 23:59:00 DIS Outpatient Anamaria Quintero [id number] 05/12/2016 00:00:00 05/12/2016 11:40:00 DIS Outpatient Anamaria Quintero [id number] 05/07/2016 13:23:00 05/07/2016 23:59:00 DIS Outpatient Anamaria Quintero [id number] 02/20/2016 07:57:00 02/20/2016 23:59:00 DIS Outpatient Jos Acevedo [id number] 01/25/2016 13:41:00 01/25/2016 16:53:00 DIS Outpatient Brittney Nicholson [id number] 01/21/2016 09:03:00 01/21/2016 23:59:00 DIS Outpatient Anamaria Quintero [id number] 06/03/2016 13:12:51 Document Registration [id number] 01/31/2016 12:24:47 Document Registration [id number] 01/25/2016 13:56:41 Document Registration [id number] 01/01/2016 20:22:00 Document Registration [id number] 01/21/2016 09:03:00 Document Registration [id number] 09/03/2017 11:40:00 09/03/2017 23:59:59 CLS Outpatient PARADISE BAKER APRN [facility] [id number] 11/29/2017 11:20:00 Document Registration [id number] 10/28/2017 10:00:00 Document Registration [id number] 02/03/2017 10:00:00 Document Registration
[2018-01-02 14:57] LABS: BILIRUBIN,URINE NEGATIVE (NEGATIVE); CLARITY,URINE CLEAR; COLOR,URINE YELLOW; GLUCOSE, URINE (UA) NEGATIVE (NEGATIVE); KETONES,URINE NEGATIVE (NEGATIVE); LEUKOCYTE ESTERASE ,URINE 1+ (NEGATIVE); NITRITE,URINE NEGATIVE (NEGATIVE); PH,URINE 6 (5-9); PROTEIN,URINE 1+ (NEGATIVE); UROBILINOGEN,URINE NORMAL (NORMAL)
[2018-01-02 15:06] LABS: BACTERIA,URINE FEW /HPF; WBC,URINE RARE /HPF
[2018-01-02 15:54] LABS: BASOPHILS # (AUTO) 0.1 10^3/uL (0.0-0.1); BASOPHILS % (AUTO) 1 % (0-10); EOSINOPHILS # (AUTO) 0.1 10^3/uL (0.0-0.3); EOSINOPHILS % (AUTO) 1 % (0-10); HEMATOCRIT 37 % (35-52); HEMOGLOBIN 12.1 G/DL (11.5-16.0); LYMPHOCYTES # (AUTO) 2.6 X 10^3 (1.0-4.0); LYMPHOCYTES % (AUTO) 27 % (12-44); MEAN CORPUSCULAR HEMOGLOBIN 28 PG (25-34); MEAN CORPUSCULAR HGB CONC 33 G/DL (32-36); MEAN CORPUSCULAR VOLUME 85 FL (80-99); MEAN PLATELET VOLUME 9.8 FL (7.4-10.4); MONOCYTES # (AUTO) 0.9 X 10^3 (0.0-1.0); MONOCYTES % (AUTO) 9 % (0-12); NEUTROPHILS # (AUTO) 5.8 X 10^3 (1.8-7.8); NEUTROPHILS % (AUTO) 62 % (42-75); PLATELET COUNT 261 10^3/uL (130-400); RED BLOOD COUNT 4.34 10^6/uL (4.35-5.85); RED CELL DISTRIBUTION WIDTH 13.6 % (10.0-14.5); WHITE BLOOD COUNT 9.5 10^3/uL (4.3-11.0)
[2018-01-02 16:05] LABS: ALANINE AMINOTRANSFERASE 9 U/L (0-55); ALBUMIN 4.3 GM/DL (3.2-4.5); ALKALINE PHOSPHATASE 43 U/L (40-136); BILIRUBIN,TOTAL 0.1 MG/DL (0.1-1.0); BUN/CREATININE RATIO 18; CALCIUM 9.2 MG/DL (8.5-10.1); CARBON DIOXIDE 20 MMOL/L (21-32); CHLORIDE 109 MMOL/L (98-107); GFR ESTIMATED > 60; GLUCOSE 91 MG/DL (70-105); LIPASE 27 U/L (8-78); POTASSIUM 3.9 MMOL/L (3.6-5.0); SODIUM 141 MMOL/L (135-145); TOTAL PROTEIN 6.7 GM/DL (6.4-8.2)
[2018-01-02] MEDS ORDERED: RECEIVED CONTRAST (Hold Metformin) IV SCH (16:30)
[2018-01-02] MEDS ORDERED: IOHEXOL 350 MG/ML 100 ML (OMNIPAQUE 350) VIAL IV ONE (16:30)
[2018-01-02] MEDS ORDERED: NS 250 ML (IVPB) BAG IV ONE (16:30)
--- NOTE | 2018-01-02 17:06 | Diagnostic Imaging Report ---
PROCEDURE: CT abdomen and pelvis with contrast. TECHNIQUE: Multiple contiguous axial images were obtained through the abdomen and pelvis after administration of intravenous contrast. INDICATION: Right upper quadrant pain. FINDINGS: The heart size is normal. The lung bases are clear. The liver is normal in size and without focal lesions. The gallbladder is surgically absent. There is no biliary ductal dilatation. Spleen is normal. Pancreas and adrenal glands are unremarkable. The kidneys are normal in appearance. Aorta is nonaneurysmal. Bowel gas pattern is nonspecific. The appendix is normal. There is some questionable mucosal thickening in the gastric antrum. There is no free air. There is no ascites. There is no focal inflammatory changes. There is a 5.6 cm cyst in the left adnexa and some soft tissue fullness in the right adnexa. The uterus is normal in appearance. Bladder is normal. The osseous structures are unremarkable. IMPRESSION: 1. Questionable mucosal thickening in the gastric antrum. Possibility of gastritis or ulcer disease cannot be excluded. Recommend clinical correlation. 2. 5.6 cm cyst in the left adnexa, presumably of ovarian origin. This could likely be better evaluated with pelvic ultrasound. 3. No other acute abnormality in the abdomen or pelvis. Dictated by: Dictated on workstation # [id number]
[2018-01-02] MEDS ORDERED: FAMOTIDINE 20MG/2ML IV (PEPCID) IVP ONE (17:15)
[2018-01-02] MEDS ORDERED: LIDOCAINE 2% VISCOUS 15 ML UDC PO ONE (17:15)
[2018-01-02] MEDS ORDERED: ANTACID SUSP 30 ML UDC (MYLANTA) PO ONE (17:15)
[2018-01-02] MEDS ORDERED: RX-HYDROCODONE/APAP 5/325 MG #4 TAB PK PO PRN (18:15)
[2018-01-02] MEDS ORDERED: fentaNYL INJECTION 100 MCG/2 ML AMP IVP ONE (18:15)
[2018-01-02] MEDS ORDERED: HYDR-3812 PO (18:17)
[2018-01-02] MEDS ORDERED: ONDA4TAB8 SL (18:17)
--- NOTE | 2018-01-02 18:17 | ED Abdominal Pain ---
General Chief Complaint: Abdominal/GI Problems Stated Complaint: SIDE PAIN,FEVER Nursing Triage Note: TO ROOM C/O R UPPER ABD PAIN SINCE DEC 01 HAS SONO ON DEC 13 THAT SHOWED IN LARGED LIVER. WAS TOLD IF CON'T TO HAVE PAIN NEED TO HAVE FOLLOW UP. CON'T HAVE PAIN WITH LAST FEW DAY HAS HAD LOW TEMP. Sepsis Screen: No Definite Risk Source of Information: Patient, Old Records Exam Limitations: No Limitations History of Present Illness Date Seen by Provider: Jan 02, 2018 Time Seen by Provider: 14:34 Initial Comments This 37-year-old woman presents to the emergency room with worsening right upper quadrant pain since December 01. She sees Bhupinder Iyer at [facility] where she also works. She was evaluated there and an ultrasound was ordered. The ultrasound noted some mild liver enlargement. No other definite abnormalities were found. Patient is status post cholecystectomy. Pain has been relatively constant and is described as a pressure, like something might explode. She denies any worsening of pain with movement. She does have a little worsening of pain with cough. Today she developed some mild nausea. She has no constipation or diarrhea. Her last bowel movement was this morning. It was normal. Urine has some odor to it and she has had some urinary frequency and has felt like she sometimes does not completely empty her bladder. She denies any vaginal symptoms. LMP was 2 weeks ago. She takes Protonix and ranitidine routinely. Allergies and Home Medications Allergies Coded Allergies: morphine (Verified Allergy, Mild, RASH, 05/18/12) Penicillins (Unverified Allergy, Unknown, RASH, 01/02/18) Home Medications Albuterol 8.5 Gm Hfa.aer.ad, 8.5 GM IH HS PRN, (Reported) 2 PUFFS Calcium Carbonate 200 Mg Tab.chew, 200 MG PO PRN PRN for HEARTBURN, (Reported) Cetirizine Hcl/Pseudoephedrine 1 Each Tab.er.12h, 1 EACH PO DAILY, (Reported) Hydrocodone/Acetaminophen 1 Each Tablet, 1 EACH PO Q4-6HR PRN for PAIN-MODERATE Prescribed by: LAVELL KU on 01/02/181816 Ondansetron 4 Mg Tab.rapdis, 4 MG SL Q4H PRN for NAUSEA/VOMITING-1ST LINE Prescribed by: LAVELL KU on 01/02/181816 Oxycodone Hcl/Acetaminophen 1 Tab Tablet, 1-2 TAB PO Q3H PRN for PAIN Prescribed by: ELIDA KIRK on 12/13/132244 Vit 15/Iron Cb/Fa/Dss 1 Each Tablet, 1 EACH PO DAILY, (Reported) Ranitidine Hcl 150 Mg Capsule, 150 MG PO BID, (Reported) [Ibuprofen] 600 MG TAB, 600 MG PO Q6H PRN for PAIN Prescribed by: ELIDA KIRK on 12/13/132244 Patient Home Medication List Home Medication List Reviewed: Yes Review of Systems Review of Systems Constitutional: no symptoms reported EENTM: No Symptoms Reported Respiratory: No Symptoms Reported Cardiovascular: No Symptoms Reported Gastrointestinal: See HPI Genitourinary: See HPI Musculoskeletal: no symptoms reported Skin: no symptoms reported Psychiatric/Neurological: No Symptoms Reported Endocrine: No Symptoms Reported Hematologic/Lymphatic: No Symptoms Reported Past Shlkuue-Pebycd-Mocbft Hx Patient Social History Alcohol Use: Denies Use Recreational Drug Use: No Smoking Status: Never a Smoker Recent Foreign Travel: No Contact w/Someone Who Travel: No Recent Infectious Disease Expo: No Immunizations Up To Date Tetanus Booster (TDap): Unknown Date of Influenza Vaccine: Nov 24, 2013 Past Medical History Surgeries: Yes Abdominal (hiatal hernia repair, esophageal dilatation), Section, Gallbladder Respiratory: Yes Cardiac: No Neurological: No Reproductive Disorders: No Gastrointestinal: Yes (esophageal stricture) Gall Bladder Disease Musculoskeletal: No 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 oz. 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, no motor/sensory deficits, alert, normal mood/affect, oriented x 3 Skin: normal color, warm/dry Progress/Results/Core Measures Results/Orders Lab Results Laboratory Tests Test 01/02/18 14:51 01/02/18 15:29 Range/Units Urine Color YELLOW Urine Clarity CLEAR Urine pH 6 5-9 Urine Specific Lester 1.020 1.016-1.022 Urine Protein 1+ H NEGATIVE Urine Glucose (UA) NEGATIVE NEGATIVE Urine Ketones NEGATIVE NEGATIVE Urine Nitrite NEGATIVE NEGATIVE Urine Bilirubin NEGATIVE NEGATIVE Urine Urobilinogen NORMAL NORMAL MG/DL Urine Leukocyte Esterase 1+ H NEGATIVE Urine RBC (Auto) NEGATIVE NEGATIVE Urine RBC NONE /HPF Urine WBC RARE /HPF Urine Squamous Epithelial Cells 5-10 /HPF Urine Crystals NONE /LPF Urine Bacteria FEW H /HPF Urine Casts NONE /LPF Urine Mucus NEGATIVE /LPF Urine Culture Indicated NO White Blood Count 9.5 4.3-11.0 10^3/uL Red Blood Count 4.34 L 4.35-5.85 10^6/uL Hemoglobin 12.1 11.5-16.0 G/DL Hematocrit 37 35-52 % Mean Corpuscular Volume 85 80-99 FL Mean Corpuscular Hemoglobin 28 25-34 PG Mean Corpuscular Hemoglobin Concent 33 32-36 G/DL Red Cell Distribution Width 13.6 10.0-14.5 % Platelet Count 261 130-400 10^3/uL Mean Platelet Volume 9.8 7.4-10.4 FL Neutrophils (%) (Auto) 62 42-75 % Lymphocytes (%) (Auto) 27 12-44 % Monocytes (%) (Auto) 9 0-12 % Eosinophils (%) (Auto) 1 0-10 % Basophils (%) (Auto) 1 0-10 % Neutrophils # (Auto) 5.8 1.8-7.8 X 10^3 Lymphocytes # (Auto) 2.6 1.0-4.0 X 10^3 Monocytes # (Auto) 0.9 0.0-1.0 X 10^3 Eosinophils # (Auto) 0.1 0.0-0.3 10^3/uL Basophils # (Auto) 0.1 0.0-0.1 10^3/uL Sodium Level 141 135-145 MMOL/L Potassium Level 3.9 3.6-5.0 MMOL/L Chloride Level 109 H 98-107 MMOL/L Carbon Dioxide Level 20 L 21-32 MMOL/L Anion Gap 12 5-14 MMOL/L Blood Urea Nitrogen 14 7-18 MG/DL Creatinine 0.80 0.60-1.30 MG/DL Estimat Glomerular Filtration Rate > 60 BUN/Creatinine Ratio 18 Glucose Level 91 70-105 MG/DL Calcium Level 9.2 8.5-10.1 MG/DL Corrected Calcium 9.0 8.5-10.1 MG/DL Total Bilirubin 0.1 0.1-1.0 MG/DL Aspartate Amino Transf (AST/SGOT) 14 5-34 U/L Alanine Aminotransferase (ALT/SGPT) 9 0-55 U/L Alkaline Phosphatase 43 40-136 U/L C-Reactive Protein High Sensitivity 0.04 0.00-0.50 MG/DL Total Protein 6.7 6.4-8.2 GM/DL Albumin 4.3 3.2-4.5 GM/DL Lipase 27 8-78 U/L Serum Test, Qualitative NEGATIVE NEGATIVE My Orders Orders - LAVELL VELA MD Cbc With Automated Diff (01/02/18 15:18) Comprehensive Metabolic Panel (01/02/18 15:18) Hs C Reactive Protein (01/02/18 15:18) Hcg,Qualitative Serum (01/02/18 15:18) Lipase (01/02/18 15:18) Ct Abdomen/Pelvis W (01/02/18 16:18) Iohexol Injection (Omnipaque 350 Mg/Ml 1 (01/02/18 16:30) Contrast Received (Contrast Received) (01/02/18 16:30) Ns (Ivpb) (Sodium Chloride 0.9%) (01/02/18 16:30) Lidocaine 2% Viscous 15 Ml (Xylocaine Vi (01/02/18 17:15) Antacid Suspension (Mylanta Suspension (01/02/18 17:15) Famotidine Injection (Pepcid Injection) (01/02/18 17:15) Rx-Hydrocodone/Apap 5-325 Mg (Rx-Vicodin (01/02/18 18:15) Fentanyl Injection (Sublimaze Injection (01/02/18 18:15) Medications Given in ED Current Medications Medications Dose Ordered Sig/Bonilla Route Start Time Stop Time Status Last Admin Dose Admin Acetaminophen/ Hydrocodone Bitart 1 ea Q4H PRN PO 01/02/18 18:15 01/02/18 18:26 DC 01/02/18 18:15 1 EA Al Hydrox/Mg Hydrox/Simethicone 30 ml ONCE ONCE PO 01/02/18 17:15 01/02/18 17:16 DC 01/02/18 17:15 30 ML Famotidine 20 mg ONCE ONCE IVP 01/02/18 17:15 01/02/18 17:16 DC 01/02/18 17:16 20 MG Fentanyl Citrate 50 mcg ONCE ONCE IVP 01/02/18 18:15 01/02/18 18:16 DC 01/02/18 18:15 50 MCG Iohexol 100 ml ONCE ONCE IV 01/02/18 16:30 01/02/18 16:39 DC 01/02/18 16:39 100 ML Lidocaine HCl 15 ml ONCE ONCE PO 01/02/18 17:15 01/02/18 17:16 DC 01/02/18 17:15 15 ML Sodium Chloride 250 ml ONCE ONCE IV 01/02/18 16:30 01/02/18 16:39 DC 01/02/18 16:39 80 ML Vital Signs/I&O 01/02/18 01/02/18 14:35 18:20 Temp 99.7 Pulse 89 86 Resp 18 18 B/P (MAP) 126/50 (75) 120/85 (97) Pulse Ox 99 98 O2 Delivery Room Air Room Air Blood Pressure Mean: 75 Progress Progress Note : Progress Note Evaluation was first performed with urinalysis which was unremarkable. No blood was seen to suggest ureteral stone. We then proceeded to obtain labs which were likewise unremarkable. I discussed the option for further evaluation with CT imaging. We discussed the risks and benefits including the risk of IV contrast and radiation exposure. Patient wishes to incur the risks and proceed with CT evaluation. CT revealed no definite pathology to account for patient's pain although there was some mucosal thickening around the antrum of the stomach. GI cocktail and Pepcid were administered which provided her no relief of pain. Ultimately, no cause of her pain was identified. She was treated with fentanyl and given a take-home pack of hydrocodone. Patient was advised to follow-up with a surgeon or a shift mechanic for endoscopy. Diagnostic Imaging Diagonstic Imaging: CT Plain Films/CT/US/NM/MRI: abdomen, pelvis Comments CT abdomen and pelvis was viewed by me. Report reviewed. There is an incidental finding of left ovarian cyst, but this finding does not correlate at all with the location of her pain. There was some thickening around the gastric antrum possibly suggestive of ulcer or gastritis. See report below: NAME: [facility] REC#: [id number] PT STATUS: REG ER : 1980 PHYSICIAN: LAVELL VELA MD ADMIT DATE: 01/02/18/ER Draft Date of Exam:01/02/18 CT ABDOMEN/PELVIS W PROCEDURE: CT abdomen and pelvis with contrast. TECHNIQUE: Multiple contiguous axial images were obtained through the abdomen and pelvis after administration of intravenous contrast. INDICATION: Right upper quadrant pain. FINDINGS: The heart size is normal. The lung bases are clear. The liver is normal in size and without focal lesions. The gallbladder is surgically absent. There is no biliary ductal dilatation. Spleen is normal. Pancreas and adrenal glands are unremarkable. The kidneys are normal in appearance. Aorta is nonaneurysmal. Bowel gas pattern is nonspecific. The appendix is normal. There is some questionable mucosal thickening in the gastric antrum. There is no free air. There is no ascites. There is no focal inflammatory changes. There is a 5.6 cm cyst in the left adnexa and some soft tissue fullness in the right adnexa. The uterus is normal in appearance. Bladder is normal. The osseous structures are unremarkable. IMPRESSION: 1. Questionable mucosal thickening in the gastric antrum. Possibility of gastritis or ulcer disease cannot be excluded. Recommend clinical correlation. 2. 5.6 cm cyst in the left adnexa, presumably of ovarian origin. This could likely be better evaluated with pelvic ultrasound. 3. No other acute abnormality in the abdomen or pelvis. Dictated on workstation # [id number] Dict: 01/02/18 1654 Trans: 01/02/18 1705 [id number] [id number] Interpreted by: VIVIANA OCHOA MD Departure Impression Primary Impression: Right upper quadrant pain Disposition: 01 HOME, SELF-CARE Condition: Improved Departure-Patient Inst. Decision time for Depature: 18:05 Referrals: [facility] (PCP) Primary Care Physician BHUPINDER IYER APRN (Family) Primary Care Physician Patient Instructions: Acute Abdomen (Belly Pain), Adult (DC) Add. Discharge Instructions: Continue taking your antacid medications as previously prescribed. Take your pain medications as prescribed. Uses Zofran as prescribed for nausea if needed. Follow-up with your primary care provider as soon as possible. Requests to be screened for H. pylori infection (chronic bacterial infection of the stomach that can cause pain and ulcers) if this has not already been done. Seek referral to a surgeon or return to your surgeon/shift mechanic who performed your prior endoscopy. Return to the emergency room if you have worsening symptoms. All discharge instructions reviewed with patient and/or family. Voiced understanding. Scripts Hydrocodone/Acetaminophen (Hydrocodone-Acetamin 5-325 mg) 1 Each Tablet 1 EACH PO Q4-6HR PRN for PAIN-MODERATE, #8 TAB Prov: LAVELL VELA MD 01/02/18 Ondansetron (Zofran Odt) 4 Mg Tab.rapdis 4 MG SL Q4H PRN for NAUSEA/VOMITING-1ST LINE, #10 TAB Prov: LAVELL VELA MD 01/02/18 Copy Copies To 1: CASA MONTERO JOSHUA T MD Jan 02, 2018 18:17
[2018-01-02 18:20] VITALS: BP 120/85
== END 2018-01-02 18:20 | disposition home or self-care (01) ==
LOC: EDUNIT# 14:32 → ER 14:33
DX: R10.11 Right upper quadrant pain (principal); Z88.6 Allergy status to analgesic agent; Z88.0 Allergy status to penicillin; Z98.890 Other specified postprocedural states
CPT/HCPCS: 36415; 74177; 80053; 81000; 83690; 84703; 85025; 86141; 96374; 96375

== ENCOUNTER → 2018-11-30 | Outpatient (CLI) | payer OTHER ==
[~2018-11-30] MED LIST changes: +CATHETER FLUSH 10 ML SYR IV PRN; +HOLD METFORMIN - RECEIVED CONTRAST 20 ML VIAL IV SCH; +HYDR-3812 PO; +IOHEXOL 350 MG/ML 100 ML (OMNIPAQUE 350) VIAL IV ONE; +NS 100 ML (IVPB) BAG IV ONE; +ONDA4TAB8 SL
[2018-11-30 07:16] LABS: BUN/CREATININE RATIO 19; CREATININE SERUM 0.72 MG/DL (0.60-1.30); GFR ESTIMATED > 60
--- NOTE | 2018-11-30 08:24 | Diagnostic Imaging Report ---
EXAMINATION: CT Abdomen and Pelvis with intravenous contrast. TECHNIQUE: Multiple contiguous axial images were obtained through the abdomen and pelvis after the uneventful administration of intravenous contrast. All CT scans use one or more of the following dose optimizing techniques: automated exposure control, MA and/or KvP adjustment based on a patient size and exam type, or iterative reconstruction. HISTORY: Left upper quadrant pain FINDINGS: Comparison 01/02/2018. Limited views of the lower thorax are unremarkable. Liver is normal. No focal liver lesions are seen. Gallbladder is absent. No biliary ductal dilation. Portal vein is patent. Pancreas, spleen and adrenal glands are normal. Kidneys are normal without hydronephrosis. Urinary bladder is normal. Uterus and adnexa are normal for age. There are no dilated loops of large or small bowel. No bowel obstruction or inflammation. Abdominal aorta is normal in caliber. Appendix is normal. There has been a fundoplication. There are no suspicious osseous lesions. IMPRESSION: 1. No acute abnormality in the abdomen or pelvis. Dictated by: Dictated on workstation # [id number]
== END ==
LOC: RAD 06:45
PROVIDERS: ATTEND Nurse Practitioner Family
DX: K21.9 Gastro-esophageal reflux disease without esophagitis (principal); R10.12 Left upper quadrant pain; Z90.49 Acquired absence of other specified parts of digestive tract
CPT/HCPCS: 36415; 74177; 82565; 84520

== ENCOUNTER → 2019-02-24 | Outpatient (CLI) | payer OTHER ==
[~2019-02-24] MED LIST changes: -CATHETER FLUSH 10 ML SYR IV PRN
--- NOTE | 2019-02-24 08:21 | Diagnostic Imaging Report ---
PROCEDURE: CT abdomen and pelvis without and with intravenous contrast. TECHNIQUE: Precontrast axial CT images of the abdomen and pelvis were obtained. Multiple contiguous axial images were obtained through the abdomen and pelvis after the administration of intravenous contrast. Auto Exposure Controls were utilized during the CT exam to meet ALARA standards for radiation dose reduction. DATE: February 24, 2019. COMPARISON: CT abdomen pelvis November 30, 2018. INDICATION: 38-year-old female, abdominal pain, ileus. FINDINGS: The visualized portions of the lung bases are clear. The heart is not enlarged. There is no pericardial effusion. The liver is normal in size and contour. There is no identified liver lesion. The main, right, and left portal veins are patent. The patient is status post cholecystectomy. There is no intrahepatic or extrahepatic bile duct dilation. The main pancreatic duct is not abnormally dilated. Unremarkable appearance of the pancreatic parenchyma. The spleen is normal in size. The adrenal glands are unremarkable. Unremarkable appearance of the renal parenchyma. The urinary collecting systems are not distended. There is no identified renal or ureteral stone. The urinary bladder is unremarkable in appearance. Uterus and adnexa are grossly unremarkable in appearance on limited CT evaluation. The intestinal tract is not distended. There is no evidence of acute appendicitis. There is no free intraperitoneal air. There is no drainable fluid collection. There is no sizable volume free pelvic fluid. The splenic artery arises directly off the abdominal aorta. There is no identified abnormally enlarged lymph node in the abdomen or pelvis which specifically meets CT size criteria for adenopathy. There is no identified acute bony abnormality. IMPRESSION: CT ABDOMEN AND PELVIS. 1. No evidence of ileus or bowel obstruction. 2. No acute abnormality within the abdomen or pelvis. Dictated by: Dictated on workstation # [id number]
== END ==
LOC: RAD 06:58
PROVIDERS: ATTEND Nurse Practitioner Family
DX: K56.7 Ileus, unspecified (principal)
CPT/HCPCS: 74178

== ENCOUNTER 2021-06-20 10:43 | Emergency (ER) | payer OTHER ==
[~2021-06-20] VITALS: Ht 170.1 cm; Wt 66.1 kg
[~2021-06-20 10:43] MED LIST changes: +ACHD5005 PO; -HOLD METFORMIN - RECEIVED CONTRAST 20 ML VIAL IV SCH; -HYDR-3812 PO; -IOHEXOL 350 MG/ML 100 ML (OMNIPAQUE 350) VIAL IV ONE; -NS 100 ML (IVPB) BAG IV ONE
--- NOTE | 2021-06-20 11:05 | ED General ---
General Chief Complaint: Cardiac/General Problems Stated Complaint: ABD PAIN - CHEST PAIN Nursing Triage Note: chest pain for a couple days. denies sob, broke out in a sweat about 30 minutes ago. 8\\10 on pain scale. Source of Information: Patient Exam Limitations: No Limitations History of Present Illness Date Seen by Provider: Jun 20, 2021 Time Seen by Provider: 10:52 Initial Comments Patient is a 40-year-old female who presents to the emergency department today with a chief complaint of right flank pain right upper quadrant pain, pain radiating up into her chest and into her back. She states the symptoms have started over the course of the last 2 or 3 days. She was seen at [facility] urgent care last night and diagnosed with a urinary tract infection, given a prescription of Bactrim and also a prescription for prednisone. She has not started the prednisone yet. Patient states that periodically she gets "flares" of this. She saw Dr. Acevedo about 3 years ago and had extensive work-up and was diagnosed with bacterial overgrowth of the small intestine. She is on pantoprazole and famotidine. She has had hiatal hernia repair as well as cholecystectomy. She denies any fevers or chills. She is not currently nauseated. Moving around makes the pain worse. She states the chest pain is what triggered her visit to the emergency department today. Nothing really is making the discomfort any better or any worse. Last normal bowel movement was yesterday morning. Nonblack nonbloody. She is not having heartburn currently. She states the pain was so bad at around 3 AM this morning she took some hydrocodone that she had leftover from a knee injury. It helped a little. Patient states that the pain was so severe while she was at work this morning she became sweaty. She states she drove to [facility] at the beginning of May. Stopped frequently to get out and walk around. No leg swelling or pain. No history of blood clot. No family history of clotting disorder. She is not short of breath at this time. All other review of systems reviewed and negative except as stated. Timing/Duration: 2-3 Days Severity: Moderate, Severe Modifying Factors: worse with Movement Associated Systoms: Chest Pain, Other (abdominal pain) Allergies and Home Medications Allergies Coded Allergies: morphine (Verified Allergy, Mild, RASH, 05/18/12) Penicillins (Unverified Allergy, Unknown, RASH, 01/02/18) Patient Home Medication List Home Medication List Reviewed: Yes Albuterol (Proair Hfa) 8.5 Gm Hfa.aer.ad, 8.5 GM IH HS PRN, (Reported) Entered as Reported by: ESEQUIEL AGGARWAL on 05/12/12 121 Calcium Carbonate (Tums) 200 Mg Tab.chew, 200 MG PO PRN PRN for HEARTBURN, (Reported) Entered as Reported by: RADHA RIVERA on 12/06/13 111 Cetirizine Hcl/Pseudoephedrine (Zyrtec-D Tablet) 1 Each Tab.er.12h, 1 EACH PO DAILY, (Reported) Entered as Reported by: RADHA RIVERA on 12/06/131112 Hydrocodone Bit/Acetaminophen (Lortab 5 Mg Tablet) 1 Each Tablet, 1 EACH PO Q4- 6HR PRN for PAIN-MODERATE Prescribed by: LAVELL KU on 01/02/181816 Ondansetron (Zofran Odt) 4 Mg Tab.rapdis, 4 MG SL Q4H PRN for NAUSEA/VOMITING- 1ST LINE Prescribed by: LAVELL KU on 01/02/181816 Oxycodone Hcl/Acetaminophen (Endocet) 1 Tab Tablet, 1-2 TAB PO Q3H PRN for PAIN Prescribed by: ELIDA KIRK on 12/13/132244 Vit 15/Iron Cb/Fa/Dss ( Ad Tablet) 1 Each Tablet, 1 EACH PO DAILY, (Reported) Entered as Reported by: RADHA RIVERA on 12/06/131112 Ranitidine Hcl (Ranitidine Hcl) 150 Mg Capsule, 150 MG PO BID, (Reported) Entered as Reported by: RADHA RIVERA on 12/06/131112 [Ibuprofen] 600 MG TAB, 600 MG PO Q6H PRN for PAIN Prescribed by: ELIDA KIRK on 12/13/132244 Review of Systems Review of Systems Constitutional: see HPI, diaphoresis EENTM: no symptoms reported Respiratory: no symptoms reported Cardiovascular: chest pain Gastrointestinal: abdominal pain (RUQ) Genitourinary: no symptoms reported LMP: Jun 06, 2021 Musculoskeletal: back pain Skin: no symptoms reported All Other Systems Reviewed Negative Unless Noted: Yes Past Ifjnkmr-Esgbro-Kkjfig Hx Patient Social History Tobacco Use?: Yes Tobacco type used: Cigarettes Smoking Status: Current Everyday Smoker Use of E-Cig and/or Vaping dev: No Substance use?: No Alcohol Use?: Yes Alcohol Frequency: Rarely Immunizations Up To Date Tetanus Booster (TDap): Unknown Past Medical History Surgeries: Yes Abdominal, Section, Gallbladder Respiratory: Yes Cardiac: No Neurological: No Reproductive Disorders: No Gastrointestinal: Yes (esophageal stricture) Gall Bladder Disease Musculoskeletal: No 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 oz. 63.070902ef; 22.00 BMI Method:Stated General Appearance: WD/WN, Anxious Eyes: Bilateral Eye Normal Inspection, Bilateral Eye PERRL, Bilateral Eye EOMI HEENT: PERRL/EOMI Neck: Normal Inspection Respiratory: Lungs Clear, Normal Breath Sounds, No Accessory Muscle Use, No Respiratory Distress Cardiovascular: Regular Rate, Rhythm (90's), No Murmur, Normal Peripheral Pulses Gastrointestinal: Soft, Tenderness (mild tenderness RUQ; no rebound. no distension; normal BS; no CVA tenderness) Extremity: Normal Inspection, Non Tender, No Calf Tenderness, No Pedal Edema Neurologic/Psychiatric: Alert, Oriented x3, No Motor/Sensory Deficits, Other (anxious) Skin: Normal Color, Warm/Dry, Other (no rashes) Progress/Results/Core Measures Suspected Sepsis SIRS Temperature: Pulse: 98 Respiratory Rate: 15 Laboratory Tests 06/20/21 10:47: White Blood Count 7.5 Blood Pressure 145 /103 Mean: 117 Laboratory Tests 06/20/21 10:47: Creatinine 0.78, Platelet Count 420H, Total Bilirubin 0.3 Results/Orders Lab Results Laboratory Tests Test 06/20/21 10:47 06/20/21 11:02 Range/Units White Blood Count 7.5 4.3-11.0 10^3/uL Red Blood Count 5.03 3.80-5.11 10^6/uL Hemoglobin 11.1 L 11.5-16.0 g/dL Hematocrit 37 35-52 % Mean Corpuscular Volume 73 L 80-99 fL Mean Corpuscular Hemoglobin 22 L 25-34 pg Mean Corpuscular Hemoglobin Concent 30 L 32-36 g/dL Red Cell Distribution Width 17.2 H 10.0-14.5 % Platelet Count 420 H 130-400 10^3/uL Mean Platelet Volume 9.1 9.0-12.2 fL Immature Granulocyte % (Auto) 0 % Neutrophils (%) (Auto) 64 42-75 % Lymphocytes (%) (Auto) 21 12-44 % Monocytes (%) (Auto) 13 H 0-12 % Eosinophils (%) (Auto) 1 0-10 % Basophils (%) (Auto) 1 0-10 % Neutrophils # (Auto) 4.8 1.8-7.8 10^3/uL Lymphocytes # (Auto) 1.5 1.0-4.0 10^3/uL Monocytes # (Auto) 1.0 0.0-1.0 10^3/uL Eosinophils # (Auto) 0.1 0.0-0.3 10^3/uL Basophils # (Auto) 0.1 0.0-0.1 10^3/uL Immature Granulocyte # (Auto) 0.0 0.0-0.1 10^3/uL Sodium Level 136 135-145 MMOL/L Potassium Level 3.7 3.6-5.0 MMOL/L Chloride Level 104 98-107 MMOL/L Carbon Dioxide Level 21 21-32 MMOL/L Anion Gap 11 5-14 MMOL/L Blood Urea Nitrogen 6 L 7-18 MG/DL Creatinine 0.78 0.60-1.30 MG/DL Estimat Glomerular Filtration Rate 99 BUN/Creatinine Ratio 8 Glucose Level 94 70-105 MG/DL Calcium Level 9.0 8.5-10.1 MG/DL Corrected Calcium 8.6 8.5-10.1 MG/DL Total Bilirubin 0.3 0.1-1.0 MG/DL Aspartate Amino Transf (AST/SGOT) 164 H 5-34 U/L Alanine Aminotransferase (ALT/SGPT) 87 H 0-55 U/L Alkaline Phosphatase 133 40-136 U/L Total Protein 7.4 6.4-8.2 GM/DL Albumin 4.5 3.2-4.5 GM/DL Lipase 93 H 8-78 U/L Urine Color YELLOW Urine Clarity CLEAR Urine pH 6.5 5-9 Urine Specific [place] 1.010 L 1.016-1.022 Urine Protein NEGATIVE NEGATIVE Urine Glucose (UA) NEGATIVE NEGATIVE Urine Ketones NEGATIVE NEGATIVE Urine Nitrite NEGATIVE NEGATIVE Urine Bilirubin NEGATIVE NEGATIVE Urine Urobilinogen 0.2 < = 1.0 MG/DL Urine Leukocyte Esterase 1+ H NEGATIVE Urine RBC (Auto) NEGATIVE NEGATIVE Urine RBC NONE /HPF Urine WBC 5-10 H /HPF Urine Squamous Epithelial Cells 10-25 H /HPF Urine Crystals NONE /LPF Urine Bacteria MODERATE H /HPF Urine Casts NONE /LPF Urine Mucus NEGATIVE /LPF Urine Culture Indicated YES My Orders Orders - MEENA EDWARDS MD Ekg Tracing (06/20/21 10:47) Ed Iv/Invasive Line Start (06/20/21 11:05) Cbc With Automated Diff (06/20/21 11:05) Comprehensive Metabolic Panel (06/20/21 11:05) Lipase (06/20/21 11:05) Ua Culture If Indicated (06/20/21 11:05) Urine Bedside (06/20/21 11:05) Ketorolac Injection (Toradol Injection) (06/20/21 11:15) Urine Culture (06/20/21 11:02) Vital Signs/I&O 06/20/21 10:46 Temp 36.4 Pulse 98 Resp 15 B/P (MAP) 145/103 (117) Pulse Ox 100 O2 Delivery Room Air Capillary Refill : Less Than 3 Seconds Blood Pressure Mean: 117 Progress Note : Time: 12:05 Progress Note Reevaluated patient after labs, IV Toradol. She did not really get any relief from the Toradol. Her LFTs and lipase are marginally elevated. I was able to look back at prior medical records and see that she had her gallbladder out in either 2012 or with sludge/stones. My suspicion is that she may have a retained stone that would benefit from ERCP. She is a patient of Dr. Acevedo. I recommended that she call his office and schedule a follow-up appointment to further work this up. She certainly does not have evidence on physical exam of acute abdomen. She is not septic. Urine does have a little bacteria but quite a few squamous epithelial cells. I advised that she could hold off on her Bactrim until we got a urine culture back. I gave her strict return precautions to include worsening pain, vomiting, fever to come back to the emergency department. I strongly encouraged clear liquids over the next 24 to 48 hours. I will refill her hydrocodone. She is comfortable with this plan of care. I have given her a dose of fentanyl and a hydrocodone tablet here in the emergency department. All questions are sought and answered. Patient is stable for discharge. ECG Initial ECG Impression Date: Jun 20, 2021 Initial ECG Impression Time: 10:48 Initial ECG Rate: 89 Initial ECG Rhythm: Normal Sinus Initial ECG Intervals: Normal Initial ECG Impression: Normal Departure Impression Primary Impression: Abdominal pain Qualified Codes: R10.11 - Right upper quadrant pain Additional Impressions: Pancreatitis, acute Qualified Codes: K85.90 - Acute pancreatitis without necrosis or infection, unspecified Elevated liver function tests Disposition: HOME, SELF-CARE Condition: Stable Departure-Patient Inst. Decision time for Depature: 12:08 Referrals: [facility] (PCP) Primary Care Physician BHUPINDER CASTANON APRN (Family) Primary Care Physician Patient Instructions: Pancreatitis (DC) Add. Discharge Instructions: Follow a clear liquid diet over the next 24 to 48 hours. Take the pain medications as prescribed every 6 hours as needed for severe pain. You can supplement with a little Tylenol or ibuprofen as needed. Please be careful with prescribed pain medications as they can be very habit-forming and addictive. Do not drive and take these medications. You should take stool softeners while on narcotic pain medicines. Please follow-up with Dr. Acevedo to further evaluate your right upper quadrant abdominal pain and elevated liver functions. It is possible that you have a stone retained in the ducts of the liver. If you develop a fever over 100.4, worsening pain, nausea vomiting please come back to the emergency department for reevaluation and possible admission. Scripts Hydrocodone/Acetaminophen (Hydrocodone-Acetamin 5-325 mg) 5 Mg-325 Mg Tablet 1 TAB PO Q6H PRN for PAIN-MODERATE (5-7), #20 TAB Prov: MEENA EDWARDS MD 06/20/21 Copy Copies To 1: CASA MONTERO KATHRYN M MD Jun 20, 2021 11:04
[2021-06-20 11:11] LABS: BILIRUBIN,URINE NEGATIVE (NEGATIVE); CLARITY,URINE CLEAR; COLOR,URINE YELLOW; GLUCOSE, URINE (UA) NEGATIVE (NEGATIVE); KETONES,URINE NEGATIVE (NEGATIVE); LEUKOCYTE ESTERASE ,URINE 1+ (NEGATIVE); NITRITE,URINE NEGATIVE (NEGATIVE); PH,URINE 6.5 (5-9); PROTEIN,URINE NEGATIVE (NEGATIVE)
[2021-06-20 11:12] LABS: BASOPHILS # (AUTO) 0.1 10^3/uL (0.0-0.1); BASOPHILS % (AUTO) 1 % (0-10); EOSINOPHILS # (AUTO) 0.1 10^3/uL (0.0-0.3); EOSINOPHILS % (AUTO) 1 % (0-10); HEMATOCRIT 37 % (35-52); HEMOGLOBIN 11.1 g/dL (11.5-16.0); LYMPHOCYTES # (AUTO) 1.5 10^3/uL (1.0-4.0); LYMPHOCYTES % (AUTO) 21 % (12-44); MEAN CORPUSCULAR HEMOGLOBIN 22 pg (25-34); MEAN CORPUSCULAR HGB CONC 30 g/dL (32-36); MEAN CORPUSCULAR VOLUME 73 fL (80-99); MEAN PLATELET VOLUME 9.1 fL (9.0-12.2); MONOCYTES % (AUTO) 13 % (0-12); NEUTROPHILS # (AUTO) 4.8 10^3/uL (1.8-7.8); NEUTROPHILS % (AUTO) 64 % (42-75); PLATELET COUNT 420 10^3/uL (130-400); WHITE BLOOD COUNT 7.5 10^3/uL (4.3-11.0)
[2021-06-20 11:15] LABS: ALBUMIN 4.5 GM/DL (3.2-4.5)
[2021-06-20] MEDS ORDERED: KETOROLAC 30 MG/ML VIAL IVP ONE (11:15)
[2021-06-20 11:16] LABS: POTASSIUM 3.7 MMOL/L (3.6-5.0)
[2021-06-20 11:18] LABS: TOTAL PROTEIN 7.4 GM/DL (6.4-8.2)
[2021-06-20 11:18] LABS: BACTERIA,URINE MODERATE /HPF
[2021-06-20 11:20] LABS: BILIRUBIN,TOTAL 0.3 MG/DL (0.1-1.0)
[2021-06-20 11:21] LABS: CREATININE SERUM 0.78 MG/DL (0.60-1.30)
[2021-06-20] MEDS ORDERED: ACHD5005 PO (12:10)
[2021-06-20] MEDS ORDERED: HYDROcodone/APAP 5 MG/325 MG (LORTAB) TAB PO ONE (12:15)
[2021-06-20] MEDS ORDERED: fentaNYL INJ 100 MCG/2 ML AMP IVP ONE (12:15)
[2021-06-20 12:31] VITALS: BP 118/81
== END 2021-06-20 12:30 | disposition home or self-care (01) ==
LOC: EDUNIT# 10:43 → ER 10:45
DX: K85.90 Acute pancreatitis without necrosis or infection, unspecified (principal); R79.89 Other specified abnormal findings of blood chemistry; F17.210 Nicotine dependence, cigarettes, uncomplicated; Z90.49 Acquired absence of other specified parts of digestive tract
CPT/HCPCS: 36415; 80053; 81000; 83690; 85025; 87088; 93005

== ENCOUNTER 2022-06-12 14:22 | Emergency (ER) | payer OTHER ==
[2022-06-12 14:50] LABS: BILIRUBIN,URINE NEGATIVE (NEGATIVE); CLARITY,URINE CLEAR; COLOR,URINE YELLOW; GLUCOSE, URINE (UA) NEGATIVE (NEGATIVE); KETONES,URINE NEGATIVE (NEGATIVE); LEUKOCYTE ESTERASE ,URINE NEGATIVE (NEGATIVE); NITRITE,URINE NEGATIVE (NEGATIVE); PROTEIN,URINE NEGATIVE (NEGATIVE)
[2022-06-12 15:03] LABS: BACTERIA,URINE NEGATIVE /HPF; SQUAMOUS EPITHELIAL CELL,UR 0-2 /HPF
[2022-06-12 15:08] LABS: BASOPHILS # (AUTO) 0.1 10^3/uL (0.0-0.1); BASOPHILS % (AUTO) 1 % (0-10); EOSINOPHILS # (AUTO) 0.2 10^3/uL (0.0-0.3); EOSINOPHILS % (AUTO) 2 % (0-10); HEMATOCRIT 39 % (35-52); HEMOGLOBIN 11.8 g/dL (11.5-16.0); LYMPHOCYTES # (AUTO) 2.6 10^3/uL (1.0-4.0); LYMPHOCYTES % (AUTO) 29 % (12-44); MEAN CORPUSCULAR HEMOGLOBIN 23 pg (25-34); MEAN CORPUSCULAR HGB CONC 31 g/dL (32-36); MEAN CORPUSCULAR VOLUME 76 fL (80-99); MONOCYTES # (AUTO) 0.8 10^3/uL (0.0-1.0); MONOCYTES % (AUTO) 10 % (0-12); NEUTROPHILS % (AUTO) 57 % (42-75); PLATELET COUNT 456 10^3/uL (130-400); WHITE BLOOD COUNT 8.7 10^3/uL (4.3-11.0)
[2022-06-12] MEDS ORDERED: fentaNYL INJ 100 MCG/2 ML AMP IVP STA ×2 (15:12→16:51)
[2022-06-12 15:14] LABS: ALBUMIN 4.3 GM/DL (3.2-4.5)
[2022-06-12 15:15] LABS: POTASSIUM 3.8 MMOL/L (3.6-5.0)
[2022-06-12 15:16] LABS: CALCIUM 9.4 MG/DL (8.5-10.1)
[2022-06-12 15:17] LABS: TOTAL PROTEIN 7.3 GM/DL (6.4-8.2)
[2022-06-12 15:19] LABS: BILIRUBIN,TOTAL 0.1 MG/DL (0.1-1.0)
--- NOTE | 2022-06-12 15:20 | ED Abdominal Pain ---
General Chief Complaint: Abdominal/GI Problems Stated Complaint: RT SIDE PAIN | BLOOD IN URINE Nursing Triage Note: PT AMB TO RM 6 WITH C/O R SIDE ABD PAIN AND BLOOD IN URINE SHOWN FROM UA THAT WAS ORDERED AT [facility]. PT ALSO HAD US DONE AT [facility] TODAY OF PANCREAS Source of Information: Patient Exam Limitations: No Limitations History of Present Illness Date Seen by Provider: Jun 12, 2022 Time Seen by Provider: 15:15 Initial Comments Patient is a 41-year-old female who presents the ED right side abdominal pain she states she has had this intermittent abdominal pain over the past 4 years. She states she saw Dr. Buchanan a GI specialist in [place] and had a ERCP performed last September which did not show any acute ductal abnormality. Patient primary care physician has referred her to [facility] for further evaluation for this chronic pain. She states about a week ago they checked her urine which had blood in her urine. She believes she started her menstrual cycle about a week ago and reports vaginal bleeding over the past week. She states her menstrual cycles has been irregular since receiving COVID-vaccine. She has a history of cholecystectomy and 3 C-sections. Denies of any dysuria but reports frequent urination over the past 3 months. She denies chest pain, shortness of breath or cough. Has been taken Tylenol ibuprofen for pain without much improvement. She denies chest pain, headache, dizziness, visual changes, fever, headache, vomiting or diarrhea. She does report some nausea. Allergies and Home Medications Allergies Coded Allergies: morphine (Verified Allergy, Mild, RASH, 05/18/12) Penicillins (Unverified Allergy, Unknown, RASH, 01/02/18) Patient Home Medication List Home Medication List Reviewed: Yes Albuterol (Proair Hfa) 8.5 Gm Hfa.aer.ad, 8.5 GM IH HS PRN, (Reported) Entered as Reported by: ESEQUIEL AGGARWAL on 05/12/12 1213 Calcium Carbonate (Tums) 200 Mg Tab.chew, 200 MG PO PRN PRN for HEARTBURN, (Reported) Entered as Reported by: RADHA RIVERA on 12/06/13 111 Cetirizine Hcl/Pseudoephedrine (Zyrtec-D Tablet) 1 Each Tab.er.12h, 1 EACH PO DAILY, (Reported) Entered as Reported by: RADHA RIVERA on 12/06/13 111 Hydrocodone Bit/Acetaminophen (Lortab 5 Mg Tablet) 1 Each Tablet, 1 EACH PO Q4- 6HR PRN for PAIN-MODERATE Prescribed by: LAVELL KU on 01/02/181816 Hydrocodone/Acetaminophen (Hydrocodone-Acetamin 5-325 mg) 5 Mg-325 Mg Tablet, 1 TAB PO Q6H PRN for PAIN-MODERATE (5-7) Prescribed by: MEENA EDWARDS on 06/20/21 1211 Hydrocodone/Acetaminophen (Hydrocodone-Acetamin 5-325 mg) 5 Mg-325 Mg Tablet, 1 TAB PO Q4H PRN for PAIN-MODERATE (5-7) Prescribed by: JAYA COLVIN on 06/12/22 1735 Ondansetron (Zofran Odt) 4 Mg Tab.rapdis, 4 MG SL Q4H PRN for NAUSEA/VOMITING- 1ST LINE Prescribed by: LAVELL KU on 01/02/181816 Oxycodone Hcl/Acetaminophen (Endocet) 1 Tab Tablet, 1-2 TAB PO Q3H PRN for PAIN Prescribed by: ELIDA KIRK on 12/13/132244 Vit 15/Iron Cb/Fa/Dss ( Ad Tablet) 1 Each Tablet, 1 EACH PO DAILY, (Reported) Entered as Reported by: RADHA RIVERA on 12/06/131112 Ranitidine Hcl (Ranitidine Hcl) 150 Mg Capsule, 150 MG PO BID, (Reported) Entered as Reported by: RADHA RIVERA on 12/06/131112 [Ibuprofen] 600 MG TAB, 600 MG PO Q6H PRN for PAIN Prescribed by: ELIDA KIRK on 12/13/132244 Review of Systems Review of Systems Constitutional: No chills, No diaphoresis EENTM: No Double Vision, No Eye Pain Respiratory: Denies Cough, Denies Orthopnea Cardiovascular: Denies Chest Pain Gastrointestinal: Abdominal Pain; Denies Diarrhea; Nausea; Denies Vomiting Genitourinary: Denies Burning, Denies Discharge; Frequency; Denies Flank Pain Musculoskeletal: No back pain, No joint pain Skin: No change in color, No change in hair/nails Psychiatric/Neurological: Denies Anxiety, Denies Depressed All Other Systems Reviewed Negative Unless Noted: Yes Past Txfamng-Dxprcq-Vubjdc Hx Patient Social History Tobacco Use?: Yes Tobacco type used: Cigarettes Substance use?: No Alcohol Use?: No Pt feels they are or have been: No Immunizations Up To Date Tetanus Booster (TDap): Unknown Influenza Vaccine Up-to-Date: No; Not Current First/Initial COVID19 Vaccinat: 02/25/21 Second COVID19 Vaccination Mp: 03/27/21 Past Medical History Surgery/Hospitalization HX: PANCREATITIS, ERCP, X3, LUANA, HERNIA Surgeries: Yes Abdominal, Section, Gallbladder Respiratory: Yes Cardiac: No Neurological: No Last Menstrual Period: May 13, 2022 Reproductive Disorders: No Gastrointestinal: Yes (esophageal stricture) Gall Bladder Disease Musculoskeletal: No 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 oz. 63.234942vl; 22.00 BMI Method:Stated General Appearance: WD/WN, no apparent distress HEENT: PERRL/EOMI, normal ENT inspection, TMs normal, pharynx normal Neck: non-tender, full range of motion, supple Respiratory: chest non-tender, lungs clear, normal breath sounds Cardiovascular: regular rate, rhythm, no edema, no gallop, no JVD Gastrointestinal: normal bowel sounds, soft, no organomegaly, tenderness (Right upper quadrant, right lower quadrant tenderness. Normal bowel sounds throughout. No rebound or guarding.) Extremities: normal range of motion, non-tender, normal inspection, no pedal edema Back: normal inspection, no CVA tenderness, no vertebral tenderness Neurologic/Psychiatric: spring repairer helper hand II-XII nml as tested, no motor/sensory deficits, alert, normal mood/affect, oriented x 3 Skin: normal color, warm/dry Progress/Results/Core Measures Results/Orders Lab Results Laboratory Tests Test 06/12/22 14:40 06/12/22 14:58 Range/Units Urine Color YELLOW Urine Clarity CLEAR Urine pH 7.0 5-9 Urine Specific [place] <=1.005 1.016-1.022 Urine Protein NEGATIVE NEGATIVE Urine Glucose (UA) NEGATIVE NEGATIVE Urine Ketones NEGATIVE NEGATIVE Urine Nitrite NEGATIVE NEGATIVE Urine Bilirubin NEGATIVE NEGATIVE Urine Urobilinogen 0.2 < = 1.0 MG/DL Urine Leukocyte Esterase NEGATIVE NEGATIVE Urine RBC (Auto) 3+ H NEGATIVE Urine RBC 2-5 H /HPF Urine WBC NONE /HPF Urine Squamous Epithelial Cells 0-2 /HPF Urine Crystals NONE /LPF Urine Bacteria NEGATIVE /HPF Urine Casts NONE /LPF Urine Mucus NEGATIVE /LPF Urine Culture Indicated NO Urine Test NEGATIVE NEGATIVE White Blood Count 8.7 4.3-11.0 10^3/uL Red Blood Count 5.05 3.80-5.11 10^6/uL Hemoglobin 11.8 11.5-16.0 g/dL Hematocrit 39 35-52 % Mean Corpuscular Volume 76 L 80-99 fL Mean Corpuscular Hemoglobin 23 L 25-34 pg Mean Corpuscular Hemoglobin Concent 31 L 32-36 g/dL Red Cell Distribution Width 26.5 H 10.0-14.5 % Platelet Count 456 H 130-400 10^3/uL Mean Platelet Volume 9.0 9.0-12.2 fL Immature Granulocyte % (Auto) 1 % Neutrophils (%) (Auto) 57 42-75 % Lymphocytes (%) (Auto) 29 12-44 % Monocytes (%) (Auto) 10 0-12 % Eosinophils (%) (Auto) 2 0-10 % Basophils (%) (Auto) 1 0-10 % Neutrophils # (Auto) 5.0 1.8-7.8 10^3/uL Lymphocytes # (Auto) 2.6 1.0-4.0 10^3/uL Monocytes # (Auto) 0.8 0.0-1.0 10^3/uL Eosinophils # (Auto) 0.2 0.0-0.3 10^3/uL Basophils # (Auto) 0.1 0.0-0.1 10^3/uL Immature Granulocyte # (Auto) 0.1 0.0-0.1 10^3/uL Sodium Level 140 135-145 MMOL/L Potassium Level 3.8 3.6-5.0 MMOL/L Chloride Level 108 H 98-107 MMOL/L Carbon Dioxide Level 22 21-32 MMOL/L Anion Gap 10 5-14 MMOL/L Blood Urea Nitrogen 7 7-18 MG/DL Creatinine 0.71 0.60-1.30 MG/DL Estimat Glomerular Filtration Rate 110 BUN/Creatinine Ratio 10 Glucose Level 94 70-105 MG/DL Calcium Level 9.4 8.5-10.1 MG/DL Corrected Calcium 9.2 8.5-10.1 MG/DL Total Bilirubin 0.1 0.1-1.0 MG/DL Aspartate Amino Transf (AST/SGOT) 14 5-34 U/L Alanine Aminotransferase (ALT/SGPT) 10 0-55 U/L Alkaline Phosphatase 71 40-136 U/L Total Protein 7.3 6.4-8.2 GM/DL Albumin 4.3 3.2-4.5 GM/DL Lipase 38 8-78 U/L My Orders Orders - JL CHAPPELL Ua Culture If Indicated (06/12/22 14:28) Hcg,Qualitative Urine (06/12/22 14:28) Cbc With Automated Diff (06/12/22 14:40) Comprehensive Metabolic Panel (06/12/22 14:40) Lipase (06/12/22 14:40) Ct Abd/Pelv W (Appendicitis) (06/12/22 15:12) Fentanyl Inj (Sublimaze Injection) (06/12/22 15:12) Iohexol Injection (Omnipaque 350 Mg/Ml 1 (06/12/22 15:30) Ns (Ivpb) (Sodium Chloride 0.9% Ivpb Bag (06/12/22 15:30) Fentanyl Inj (Sublimaze Injection) (06/12/22 16:51) Medications Given in ED Current Medications Medications Dose Ordered Sig/Bonilla Route Start Time Stop Time Status Last Admin Dose Admin Iohexol 100 ml ONCE ONCE IV 06/12/22 15:30 06/12/22 15:31 DC 06/12/22 15:51 77 ML Sodium Chloride 100 ml ONCE ONCE IV 06/12/22 15:30 06/12/22 15:31 DC 06/12/22 15:51 80 ML Vital Signs/I&O 06/12/22 06/12/22 14:32 17:40 Temp 36.5 36.5 Pulse 89 84 Resp 17 17 B/P (MAP) 125/95 (105) 142/88 Blood Pressure Mean: 105 Departure Communication (PCP) History of right-sided abdominal pain for the past 4+ years. Patient states she has had multiple scopes, ERCPs that are unremarkable. Her primary care physician is scheduling a follow-up with a specialist at [facility]. She is concerned that she had some hematuria in her urine with this abdominal pain. She had a ultrasound of her kidneys performed today which were unremarkable. Patient has been taking Tylenol ibuprofen at home. Differential diagnosis is nephrolithiasis, UTI, pancreatitis, appendicitis. History of cholecystectomy. due to current complaint CBC, CMP, lipase, urinalysis, CT abdomen and pelvis was ordered. Patient afebrile. Stable vital signs. she was given 2 doses of fentanyl with some improvement of the pain. Urinalysis was positive for hematuria without evidence of infection. Normal white blood count, hemoglobin. Platelets 456. Chemistry grossly unremarkable. CT abdomen and pelvis did not show any acute abdominal abnormality. scattered micronodules in the lung bases are likely due to infectious/inflammatory process as they are new since 2019 exam. She has no chest pain, cough or shortness of breath. Outpatient follow- up. Patient states this is very similar to her chronic pain that she has been dealing with for the past several years pain does not appear to be associated with eating.. No vomiting with eating. Discussed other etiologies such as gastritis, duodenitis. She states she has had upper EGD scopes. Discussed PPI. She has had multiple large work-ups for this pain. Recent ERCP last September which did not show any ductal abnormality. Discussed with patient I do not find anything acute or emergent findings at this time. Unclear etiology of the he maturia. Discussed recheck of urinalysis in 4 to 5 days. If no improvement may consider urology outpatient follow-up for further evaluation. She denies of any vvaginal discharge or bleeding. Patient does not appear toxic or septic. Patient is tearful. Patient was upset that patient has been dealing with this pain for this long. I did offer consult with area surgeon and urology but he refused and states he will not go anywhere else besides [facility]. Impression Primary Impression: Abdominal pain Disposition: 01 HOME, SELF-CARE Condition: Stable Departure-Patient Inst. Decision time for Depature: 17:34 Referrals: HOWIE JAMISON (PCP/Family) Primary Care Physician Patient Instructions: Abdominal Pain, Adult ED Scripts Hydrocodone/Acetaminophen (Hydrocodone-Acetamin 5-325 mg) 5 Mg-325 Mg Tablet 1 TAB PO Q4H PRN for PAIN-MODERATE (5-7), #12 TAB Prov: JL CHAPPELL 06/12/22 JL CHAPPELL Jun 12, 2022 15:20
[2022-06-12 15:21] LABS: CREATININE SERUM 0.71 MG/DL (0.60-1.30)
[2022-06-12] MEDS ORDERED: NS 100 ML (IVPB) BAG IV ONE (15:30)
[2022-06-12] MEDS ORDERED: IOHEXOL 350 MG/ML 100 ML (OMNIPAQUE 350) VIAL IV ONE (15:30)
--- NOTE | 2022-06-12 16:09 | Diagnostic Imaging Report ---
CT ABD/PELV W (APPENDICITIS) TECHNIQUE: Multiple contiguous axial images were obtained through the abdomen and pelvis after administration of intravenous contrast. All CT scans use one or more of the following dose optimizing techniques: automated exposure control, MA and/or KvP adjustment based on patient size and exam type or iterative reconstruction. INDICATION: Right lower quadrant pain. COMPARISON: 02/24/2019 FINDINGS: Lower chest: Scattered faint micronodules within the lung bases have developed. Peritoneum: No free intraperitoneal air or fluid. Liver and biliary system: The liver is normal. Cholecystectomy. No biliary duct dilatation. Spleen and Pancreas: Spleen is normal. The pancreas enhances normally without mass lesion or peripancreatic inflammatory changes. Adrenals: Normal. tract: The kidneys enhance normally without suspicious mass or obstruction. Urinary bladder is distended without wall thickening. Uterus and ovaries are normal in appearance. GI tract: Stomach is decompressed. No bowel obstruction. No pericolonic inflammatory changes. The appendix is normal. Vasculature and Lymph nodes: Normal caliber aorta. No abdominal or pelvic lymphadenopathy. Musculoskeletal: No concerning osseous lesion. IMPRESSION: 1. Scattered micronodules in the lung bases are likely due to infectious/inflammatory process as they are new since 2019 exam. 2. No acute intra-abdominal abnormality. Dictated by: Dictated on workstation # [id number]
[2022-06-12] MEDS ORDERED: ACHD5005 PO (17:34)
[2022-06-12 17:40] VITALS: BP 142/88
== END 2022-06-12 17:42 | disposition home or self-care (01) ==
LOC: EDUNIT# 14:22 → ER 14:25
DX: R10.11 Right upper quadrant pain (principal); R10.31 Right lower quadrant pain; R31.9 Hematuria, unspecified; F17.210 Nicotine dependence, cigarettes, uncomplicated; Z90.49 Acquired absence of other specified parts of digestive tract; Z88.5 Allergy status to narcotic agent
CPT/HCPCS: 36415; 74177; 80053; 81000; 83690; 84703; 85025